=== PATIENT | female | born 1935 | race Caucasian/White ===

== ENCOUNTER 2017-11-06 07:48 | Emergency (ER) | payer MEDICARE, OTHER ==
--- NOTE | 2017-11-06 09:14 | EDM.PDOC ---
ED HPI GENERAL MEDICAL PROBLEM - General Chief Complaint: Head Injury Stated Complaint: FELL AND HURT FACE Time Seen by Provider: 11/06/17 08:40 Source of Information: Reports: Patient, Family, Old Records History Limitations: Reports: Other (dementia) - History of Present Illness INITIAL COMMENTS - FREE TEXT/NARRATIVE: Marian comes into [facility] ED this morning after a fall at [facility] last pm. She has fallen numerous times in the past, last episode 01/18/17. There was no reported LOC. There is considerable facial ecchymoses of the R forehead with R periorbital swelling and suspected hematoma. There are minor ecchymoses of both hands, L buttock, and old ecchymoses of both thighs. She has taken no meds for analgesia. - Related Data Allergies Allergy/AdvReac Type Severity Reaction Status Date / Time codeine Allergy Hallucinati Verified 01/20/16 15:38 ons penicillin G Allergy Itching Verified 01/20/16 15:38 Sulfa (Sulfonamide Allergy Itching Verified 01/20/16 15:38 Antibiotics) Home Meds: Home Meds ALPRAZolam [Alprazolam] 0.25 mg PO BID 01/20/16 [History] Aspirin [Ecotrin] 81 mg PO DAILY 01/20/16 [History] Dextran 70/Hypromellose [Artificial Tears] 1 drop EYEBOTH BID 01/20/16 [History] Donepezil HCl [Aricept] 10 mg PO DAILY 01/20/16 [History] FLUoxetine [PROzac] 20 mg PO DAILY 01/20/16 [History] Furosemide [Lasix] 40 mg PO DAILY 01/20/16 [History] Hydrocodone/Acetaminophen [Hydrocodon-Acetaminophen 5-325] 325 mg PO TID [History] Levothyroxine Sodium [Unithroid] 125 mcg PO DAILY 01/20/16 [History] Multivitamins/Minerals/Lutein [Certavite SR with Lutein] 1 tab PO DAILY [History] Potassium Chloride [Klor-Con] 20 meq PO DAILY 01/20/16 [History] Simvastatin [Zocor] 20 mg PO DAILY 01/20/16 [History] Vit B12/Lmefolate Ca/Vit B6/B2 [Cerefolin] 500 mcg PO DAILY 01/20/16 [History] busPIRone [Buspar] 10 mg PO BID 01/20/16 [History] ALPRAZolam [Xanax] 0.25 mg PO DAILY 11/06/17 [History] Acetaminophen 650 mg PO Q4H PRN MDD 3000 mg 11/06/17 [History] traZODone 100 mg PO DAILY 11/06/17 [History] Past Medical History HEENT History: Reports: Hard of Hearing, Impaired Vision Other HEENT History: HEARING AIDS BILATERAL Gastrointestinal History: Reports: Diverticulosis Genitourinary History: Reports: Urinary Incontinence 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: Musculoskeletal History: Reports: Arthritis Psychiatric History: Reports: Anxiety, Dementia, Depression - Infectious Disease History Infectious Disease History: Reports: MRSA - Past Surgical History HEENT Surgical History: Reports: Eye Surgery Musculoskeletal Surgical History: Reports: Knee Replacement, Shoulder Surgery Social & Family History - Family History Family Medical History: Noncontributory - Tobacco Use Smoking Status *Q: Never Smoker - Recreational Drug Use Recreational Drug Use: No ED ROS GENERAL - Review of Systems Review Of Systems: Unable To Obtain ED EXAM, HEAD INJURY - Physical Exam Exam: See Below Exam Limited By: Other (dementia) General Appearance: Alert, WD/WN, No Apparent Distress Head: Facial Abrasions, Facial Ecchymosis, Facial Swelling, Facial Tenderness ( R forehead and R periorbital tissues) Eyes: Right Eye: Periorbital Changes (ecchymoses, suspected hematoma), Bilateral Eye: EOMI, PERRL Ears: Normal External Exam, Hearing Loss Nose: Normal Inspection Throat/Mouth: Normal Inspection, Normal Lips, Normal Oropharynx, Normal Voice, No Airway Compromise Neck: Non-Tender, Full Range of Motion, Normal Alignment Respiratory: Lungs Clear, Normal Breath Sounds, Chest Non-Tender Cardiovascular: Regular Rate, Rhythm, Extra Beats GI/Abdominal Exam: Normal Bowel Sounds, Soft, Non-Tender, No Organomegaly, No Distention, No Mass (Female) Exam: Deferred Rectal (Female) Exam: Deferred Back Exam: Normal Inspection Extremities: Leg Pain (with movement of knees and hips, and shoulders R>L), Limited Range of Motion, Other (ecchymoses of L buttock, both hands, lateral thighs) 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 Last Recorded V/S: Last Vital Signs Temp 36.5 C 11/06/17 08:10 Pulse 68 11/06/17 08:10 Resp 18 11/06/17 08:10 BP 143/82 H 11/06/17 08:10 Pulse Ox 97 11/06/17 08:10 - Orders/Labs/Meds Orders: Active Orders 24 hr Category Date Time Status Head wo Cont [CT] Stat Exams 11/06/17 09:05 Taken Departure - Departure Time of Disposition: 10:14 Disposition: DC/Tfer to [facility] Condition: Fair Clinical Impression: Recurrent falls Contusion of face Qualifiers: Encounter type: initial encounter Qualified Code(s): S00.83XA - Contusion of other part of head, initial encounter - Discharge Information Referrals: Rigoberto Brooks MD [Primary Care Provider] - Forms: ED Department Discharge - Problem List & Annotations (1) Contusion of face SNOMED Code(s): 000388734 Code(s): S00.83XA - CONTUSION OF OTHER PART OF HEAD, INITIAL ENCOUNTER Status: Acute Current Visit: Yes Annotation/Comment:: Sxs cares, cool packs for comfort, analgesic of choice Qualifiers: Encounter type: initial encounter Qualified Code(s): S00.83XA - Contusion of other part of head, initial encounter (2) Recurrent falls SNOMED Code(s): 287885534 Code(s): R29.6 - REPEATED FALLS Status: Acute Current Visit: Yes Annotation/Comment:: Precautions discussed for Memory Unit at [facility] - Problem List Review Problem List Initiated/Reviewed/Updated: Yes - My Orders Last 24 Hours: My Active Orders 11/06/17 09:05 Head wo Cont [CT] Stat - Assessment/Plan Last 24 Hours: My Active Orders 11/06/17 09:05 Head wo Cont [CT] Stat Plan: Follow up with PCP.
[2017-11-06 09:15] VITALS: BP 143/82
--- NOTE | 2017-11-06 13:22 | CT ---
INDICATION: Unwitnessed fall, recent episode of confusion, right periorbital hematoma, ecchymosis of forehead with no stepoff, no eye injury apparent. CT HEAD WITHOUT CONTRAST: Serial contiguous 2.5 and 5 mm sections were obtained through the brain without contrast 11/06/2017 and compared with 2015. Total exam DLP = 950.31 mGy-cm. A small retention cyst is noted in the right maxillary antrum. The paranasal sinuses and the mastoid air cells were otherwise well-aerated. No cranial fracture site was noted. No orbital fracture site was noted. Moderate degenerative changes are noted at the atlantoodontoid joint with narrowing at the joint space. Fairly marked arterial calcifications are noted in the internal carotid artery distribution, especially to the left middle cerebral artery. Atrophy is noted in the temporal lobes, especially the right. Overlying the right orbital area, there is a subcutaneous hematoma and soft tissue swelling. The ventricles are prominent, compatible with central atrophy, but are only minimally more prominent than on the previous study of 01/20/2016. White matter changes are similar or slightly increased, compatible with progressive moderately severe microvascular disease type changes, although other cause of leukoencephalopathy, such as anoxic encephalopathy, cannot be excluded. No definite acute intracranial abnormality was identified - no bleeding site or hematoma was noted. IMPRESSION: 1. No definite acute intracranial abnormality. 2. 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 3. Central atrophy, possibly minimally progressive. 4. Prominent internal carotid artery calcifications and left middle cerebral artery calcification with lesser degree of middle cerebral artery calcification on the right. 5. Atrophy temporal lobes, especially on the right. 6. Right frontal subcutaneous hematoma - scalp hematoma - with no underlying fracture site. 7. Retention cyst right maxillary antrum. Report was given in person to Dr. Noland at approximately 1010 hours on 2017. MARIANA
== END 2017-11-06 10:30 ==
LOC: FB.ED 07:48
DX: S00.83XA Contusion of other part of head, initial encounter (principal); S30.0XXA Contusion of lower back and pelvis, initial encounter; R29.6 Repeated falls; Z88.5 Allergy status to narcotic agent; Z88.0 Allergy status to penicillin; Z88.2 Allergy status to sulfonamides; Z79.82 Long term (current) use of aspirin; Z79.899 Other long term (current) drug therapy; W19.XXXA Unspecified fall, initial encounter
CPT/HCPCS: 70450; 99284

== ENCOUNTER 2018-03-26 14:49 | Observation (INO) | payer MEDICARE, OTHER, MEDICAID ==
[2018-03-26] MEDS ORDERED: Sodium Chloride 0.9% 10 ML Syringe FLUSH PRN (15:28)
[2018-03-26] MEDS ORDERED: Sodium Chloride 0.9% 1,000 ML IV SCH (15:30)
[2018-03-26 15:55] VITALS: BP 110/56
--- NOTE | 2018-03-26 18:29 | PCM.HP ---
H&P History of Present Illness - General Date of Service: 03/26/18 Admit Problem/Dx: Admission Diagnosis/Problem Admission Diagnosis/Problem Vaginal bleeding Source of Information: Patient, Family History Limitations: Reports: Other (Dementia) - History of Present Illness Initial Comments - Free Text/Narative: This is an 82-year-old female patient that was seen by Dr. Brooks in the clinic for possible vaginal bleeding. She was seen 2 days ago after she started having bleeding around the perineum at the walk-in clinic at [place]. According to the [id number] who is attending with her. They did a vaginal probe and she found PV and no bleeding. Dr. Brooks thought hospital he is coming for the rectum and did a rectal exam is guaiac negative. She does have vaginal itching, frequent urination. She has history of frequent UTIs. She has no dysuria at this time. She is having hysterectomy. She the CT scan 2 days ago that showed cysts on the kidneys but no real issues other than that. - Related Data Allergies/Adverse Reactions: Allergies Allergy/AdvReac Type Severity Reaction Status Date / Time codeine Allergy Hallucinati Verified 03/26/18 16:55 ons penicillin G Allergy Itching Verified 03/26/18 16:55 Sulfa (Sulfonamide Allergy Itching Verified 03/26/18 16:55 Antibiotics) Home Medications: Home Meds Donepezil HCl [Aricept] 10 mg PO BEDTIME 01/20/16 [History] FLUoxetine [PROzac] 20 mg PO DAILY 01/20/16 [History] Furosemide [Lasix] 40 mg PO DAILY 01/20/16 [History] Hydrocodone/Acetaminophen [Hydrocodon-Acetaminophen 5-325] 1 tab PO DAILY [History] Levothyroxine Sodium [Unithroid] 125 mcg PO DAILY 01/20/16 [History] Multivitamins/Minerals/Lutein [Certavite SR with Lutein] 1 tab PO DAILY [History] Potassium Chloride [Klor-Con] 20 meq PO DAILY 01/20/16 [History] busPIRone [Buspar] 10 mg PO BID 01/20/16 [History] ALPRAZolam [Xanax] 0.25 mg PO DAILY PRN 11/06/17 [History] Acetaminophen 650 mg PO Q4H PRN MDD 3000 mg 11/06/17 [History] Diclofenac Sodium [Voltaren] 2 gm TOP QID 11/06/17 [History] traZODone 100 mg PO BEDTIME 11/06/17 [History] Carboxymethylcellulose Sodium [Refresh Tears] 1 drop EYEBOTH BID 03/26/18 [ History] Carboxymethylcellulose Sodium [Refresh Tears] 1 drop EYEBOTH QID PRN 03/26/18 [ History] Cyanocobalamin (Vitamin B-12) [Vitamin B-12] 500 mcg PO DAILY 03/26/18 [History] Loperamide [Imodium AD] 2 mg PO ASDIRECTED PRN 03/26/18 [History] metroNIDAZOLE [Flagyl] 500 mg PO BID 03/26/18 [History] Past Medical History HEENT History: Reports: Hard of Hearing, Impaired Vision Other HEENT History: HEARING AIDS BILATERAL Cardiovascular History: Reports: Heart Failure, High Cholesterol, Other (See Below) Other Cardiovascular History: Edema. Respiratory History: Reports: None Gastrointestinal History: Reports: Diverticulosis, Fecal Incontinence Genitourinary History: Reports: Urinary Incontinence, Other (See Below) Other Genitourinary History: CYST ON LEFT KIDNEY LEGAL INTERN History: Reports: , Other (See Below) Other OB/BYN History: BACTERIAL VAGINOSIS Musculoskeletal History: Reports: Arthritis Other Musculoskeletal History: Right shoulder injury. Neurological History: Reports: Alzheimers Disease Psychiatric History: Reports: Alzheimers Disease, Anxiety, Dementia, Depression Endocrine/Metabolic History: Reports: Other (See Below) Other Endocrine/Metabolic History: Thyroid problems, not specified. 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 - Past Surgical History HEENT Surgical History: Reports: Eye Surgery GI Surgical History: Reports: Appendectomy, Cholecystectomy, Colonoscopy Female Surgical History: Reports: Hysterectomy Neurological Surgical History: Reports: None Musculoskeletal Surgical History: Reports: Knee Replacement, Shoulder Surgery Social & Family History - Family History Family Medical History: Noncontributory - Tobacco Use Smoking Status *Q: Never Smoker Second Hand Smoke Exposure: No - Caffeine Use Caffeine Use: Reports: Coffee, Soda - Recreational Drug Use Recreational Drug Use: No H&P Review of Systems - Review of Systems: Review Of Systems: See Below General: Reports: No Symptoms HEENT: Reports: No Symptoms Pulmonary: Reports: No Symptoms Cardiovascular: Reports: No Symptoms Gastrointestinal: Reports: Other (Negative except for possible bleeding from the rectum.) Genitourinary: Reports: Other (Possible vaginal bleeding) Musculoskeletal: Reports: Shoulder Pain Skin: Reports: No Symptoms Psychiatric: Reports: Other (History dementia and memory loss) Hematologic/Lymphatic: Reports: No Symptoms Immunologic: Reports: No Symptoms Exam - Exam Exam: See Below - Vital Signs Vital Signs: Last Vital Signs Temp 97.7 F 03/26/18 15:28 Pulse 71 03/26/18 15:28 Resp 24 H 03/26/18 15:28 BP 110/56 L 03/26/18 15:28 Pulse Ox 97 03/26/18 15:28 Weight: 149 lb 8 oz - Exam General: Alert, Oriented, Cooperative HEENT: Hearing Intact, Mucosa Moist & Leary, Posterior Pharynx Clear Neck: Supple, Trachea Midline Lungs: Clear to Auscultation, Normal Respiratory Effort Cardiovascular: Regular Rate, Regular Rhythm. No: Irregular Rhythm, Systolic Murmur, Diastolic Murmur GI/Abdominal Exam: Normal Bowel Sounds, Soft, Non-Tender, No Organomegaly, No Distention Rectal (Female) Exam: Other (I used the baby speculum with 2 nurses recruiting assistant. She has a nodule that's beefy that is about 1 cm superior enteroitus. There is a few small clots around the vulva area. There is no clots deep into the vagina. There was vaginal atrophy.) Extremities: Other (No bleeding perirectal.) Neuro Extensive - Mental Status: Alert, Oriented x3, Normal Mood/Affect. No: Normal Cognition Psychiatric: Alert, Normal Affect, Normal Mood - Patient Data Lab Results Last 24 hrs: Laboratory Results - last 24 hr 03/26/18 03/26/18 03/26/18 Range/Units 15:50 15:50 15:50 WBC 4.5 (4.5-12.0) X10-3/uL RBC 3.59 (3.23-5.20) x10(6)uL Hgb 11.3 L (11.5-15.5) g/dL Hct 33.4 (30.0-51.3) % MCV 93.0 (80-96) fL MCH 31.4 (27.7-33.6) pg MCHC 33.8 (32.2-35.4) g/dL RDW 14.2 (11.5-15.5) % Plt Count 148 (125-369) X10(3)uL MPV 10.5 H (7.4-10.4) fL Neut % (Auto) 68.5 (46-82) % Lymph % (Auto) 19.8 (13-37) % [place] % (Auto) 7.2 (4-12) % Eos % (Auto) 4 (1.0-5.0) % Baso % (Auto) 0 (0-2) % Neut # (Auto) 3.1 (1.6-8.3) # Lymph # (Auto) 0.9 (0.6-5.0) # [place] # (Auto) 0.3 (0.0-1.3) # Eos # (Auto) 0.2 (0.0-0.8) # Baso # (Auto) 0.0 (0.0-0.2) # PT 11.1 (8.7-11.1) INR 1.14 H (0.89-1.13) Sodium 143 (135-145) mmol/L Potassium 3.7 (3.5-5.3) mmol/L Chloride 105 (100-110) mmol/L Carbon Dioxide 29 (21-32) mmol/L BUN 18 (7-18) mg/dL Creatinine 1.2 H (0.55-1.02) mg/dL Est Cr Clr Drug Dosing 28.87 mL/min Estimated GFR (MDRD) 43 L (>60) BUN/Creatinine Ratio 15.0 (9-20) Glucose 146 H (80-116) mg/dL Calcium 8.4 L (8.6-10.2) mg/dL Total Bilirubin 0.4 (0.1-1.3) mg/dL AST 22 (5-25) IU/L ALT 21 (12-36) U/L Alkaline Phosphatase 89 (56-112) IU/L Total Protein 6.5 (6.0-8.0) g/dL Albumin 3.2 (3.2-4.6) g/dL Globulin 3.3 g/dL Albumin/Globulin Ratio 1.0 Urine Color (YELLOW) Urine Appearance (CLEAR) Urine pH (5.0-6.5) Ur Specific [place] (1.010-1.025) Urine Protein (NEGATIVE) mg/dL Urine Glucose (UA) (NEGATIVE) mg/dL Urine Ketones (NEGATIVE) mg/dL Urine Occult Blood (NEGATIVE) Urine Nitrite (NEGATIVE) Urine Bilirubin (NEGATIVE) Urine Urobilinogen (NEGATIVE) mg/dL Ur Leukocyte Esterase (NEGATIVE) Urine RBC (0) Urine WBC (0) Ur Squamous Epith Cells (NS,R,O) Urine Bacteria (NS) 03/26/18 Range/Units 17:40 WBC (4.5-12.0) X10-3/uL RBC (3.23-5.20) x10(6)uL Hgb (11.5-15.5) g/dL Hct (30.0-51.3) % MCV (80-96) fL MCH (27.7-33.6) pg MCHC (32.2-35.4) g/dL RDW (11.5-15.5) % Plt Count (125-369) X10(3)uL MPV (7.4-10.4) fL Neut % (Auto) (46-82) % Lymph % (Auto) (13-37) % [place] % (Auto) (4-12) % Eos % (Auto) (1.0-5.0) % Baso % (Auto) (0-2) % Neut # (Auto) (1.6-8.3) # Lymph # (Auto) (0.6-5.0) # [place] # (Auto) (0.0-1.3) # Eos # (Auto) (0.0-0.8) # Baso # (Auto) (0.0-0.2) # PT (8.7-11.1) INR (0.89-1.13) Sodium (135-145) mmol/L Potassium (3.5-5.3) mmol/L Chloride (100-110) mmol/L Carbon Dioxide (21-32) mmol/L BUN (7-18) mg/dL Creatinine (0.55-1.02) mg/dL Est Cr Clr Drug Dosing mL/min Estimated GFR (MDRD) (>60) BUN/Creatinine Ratio (9-20) Glucose (80-116) mg/dL Calcium (8.6-10.2) mg/dL Total Bilirubin (0.1-1.3) mg/dL AST (5-25) IU/L ALT (12-36) U/L Alkaline Phosphatase (56-112) IU/L Total Protein (6.0-8.0) g/dL Albumin (3.2-4.6) g/dL Globulin g/dL Albumin/Globulin Ratio Urine Color Yellow (YELLOW) Urine Appearance Slightly cloudy (CLEAR) Urine pH 5.0 (5.0-6.5) Ur Specific [place] 1.020 (1.010-1.025) Urine Protein Negative (NEGATIVE) mg/dL Urine Glucose (UA) Normal (NEGATIVE) mg/dL Urine Ketones Negative (NEGATIVE) mg/dL Urine Occult Blood Large H (NEGATIVE) Urine Nitrite Negative (NEGATIVE) Urine Bilirubin Negative (NEGATIVE) Urine Urobilinogen Normal (NEGATIVE) mg/dL Ur Leukocyte Esterase Negative (NEGATIVE) Urine RBC 5-10 (0) Urine WBC 0-5 (0) Ur Squamous Epith Cells Few H (NS,R,O) Urine Bacteria Few H (NS) Result Diagrams: 03/26/18 15:50 03/26/18 15:50 - Problem List (1) Mass of vagina SNOMED Code(s): 036520484 ICD Code: N89.9 - NONINFLAMMATORY DISORDER OF VAGINA, UNSPECIFIED Status: Acute Current Visit: Yes (2) Vaginal bleeding SNOMED Code(s): 948580755, 601207501 ICD Code: N93.9 - ABNORMAL UTERINE AND VAGINAL BLEEDING, UNSPECIFIED Status : Acute Current Visit: Yes Problem List Initiated/Reviewed/Updated: Yes Orders Last 24hrs: Active Orders 24 hr Category Date Time Status Patient Status [ADT] Routine ADT 03/26/18 15:28 Active Bedrest Bedside Commode [RC] ASDIRECTED Care 03/26/18 15:28 Active Height and Weight [RC] DAILY Care 03/26/18 15:28 Active Intake and Output [RC] QSHIFT Care 03/26/18 15:29 Active Oxygen Therapy [RC] PRN Care 03/26/18 15:28 Active Up With Assistance [RC] ASDIRECTED Care 03/26/18 15:28 Active Vital Signs [RC] Q4H Care 03/26/18 15:28 Active Regular Diet [DIET] Diet 03/26/18 Breakfast Active Sodium Chloride 0.9% [Normal Saline] 1,000 ml Med 03/26/18 15:30 Active IV ASDIRECTED Sodium Chloride 0.9% [Saline Flush] Med 03/26/18 15:28 Active 10 ml FLUSH ASDIRECTED PRN Peripheral IV Insertion Adult [OM.PC] Routine Oth 03/26/18 15:28 Ordered Resuscitation Status Routine Resus Stat 03/26/18 15:28 Ordered Medication Orders Sodium Chloride (Normal Saline) 1,000 mls @ 125 mls/hr IV ASDIRECTED VANESSA Last Admin: 03/26/18 16:34 Dose: 125 mls/hr Sodium Chloride (Saline Flush) 10 ml FLUSH ASDIRECTED PRN PRN Reason: Keep Vein Open Last Admin: 03/26/18 16:33 Dose: 10 ml Assessment/Plan Comment:: We initially put in for observation because her attending physician felt she could be having a GI bleed he wasn't sure. After doing a thorough exam it appears there is a little vaginal mass but 1 cm that was bleeding but is not currently bleeding. I don't see any evidence of rectal bleeding. We did a UA shows 5-10 red blood cells and that was with a catheter. The urine was clear. So is quite obvious it was not coming from the urethra. After seeing this I will send her back home to [address]. I told her not to touch her manipulate her vaginal area so we don't cause more bleeding. If she has more bleeding which she's not now. They're to call. Otherwise than that I will send a note to her primary that she should see LEGAL INTERN.
--- NOTE | 2018-03-26 18:32 | PCM.DCSUM1 ---
Discharge Summary - Hospital Course Free Text/Narrative:: All the information hospital course was outlined in the reason for hospitalization. Brief History: This is an 82-year-old female patient that was seen by Dr. Brooks in the clinic for possible vaginal bleeding. She was seen 2 days ago after she started having bleeding around the perineum at the walk-in clinic at [place]. According to the [id number] who is attending with her. They did a vaginal probe and she found PV and no bleeding. Dr. Brooks thought hospital he is coming for the rectum and did a rectal exam is guaiac negative. She does have vaginal itching, frequent urination. She has history of frequent UTIs. She has no dysuria at this time. She is having hysterectomy. She the CT scan 2 days ago that showed cysts on the kidneys but no real issues other than that. Diagnosis: Stroke: No - Discharge Data Discharge Date: 03/26/18 Discharge Disposition: Home, Self-Care 01 Condition: Good - Discharge Diagnosis/Problem(s) (1) Mass of vagina SNOMED Code(s): 984266828 ICD Code: N89.9 - NONINFLAMMATORY DISORDER OF VAGINA, UNSPECIFIED Status: Acute Current Visit: Yes (2) Vaginal bleeding SNOMED Code(s): 714523407, 479699910 ICD Code: N93.9 - ABNORMAL UTERINE AND VAGINAL BLEEDING, UNSPECIFIED Status : Acute Current Visit: Yes - Patient Instructions Diet: Regular Diet as Tolerated Activity: As Tolerated Driving: Do Not Drive Showering/Bathing: May Shower Other/Special Instructions: I relate this information to her primary look in decided he wants to set up with [facility] [employer]END[facility] - Discharge Plan Home Medications: Home Meds Donepezil HCl [Aricept] 10 mg PO BEDTIME 01/20/16 [History] FLUoxetine [PROzac] 20 mg PO DAILY 01/20/16 [History] Furosemide [Lasix] 40 mg PO DAILY 01/20/16 [History] Hydrocodone/Acetaminophen [Hydrocodon-Acetaminophen 5-325] 1 tab PO DAILY [History] Levothyroxine Sodium [Unithroid] 125 mcg PO DAILY 01/20/16 [History] Multivitamins/Minerals/Lutein [Certavite SR with Lutein] 1 tab PO DAILY [History] Potassium Chloride [Klor-Con] 20 meq PO DAILY 01/20/16 [History] busPIRone [Buspar] 10 mg PO BID 01/20/16 [History] ALPRAZolam [Xanax] 0.25 mg PO DAILY PRN 11/06/17 [History] Acetaminophen 650 mg PO Q4H PRN MDD 3000 mg 11/06/17 [History] Diclofenac Sodium [Voltaren] 2 gm TOP QID 11/06/17 [History] traZODone 100 mg PO BEDTIME 11/06/17 [History] Carboxymethylcellulose Sodium [Refresh Tears] 1 drop EYEBOTH BID 03/26/18 [ History] Carboxymethylcellulose Sodium [Refresh Tears] 1 drop EYEBOTH QID PRN 03/26/18 [ History] Cyanocobalamin (Vitamin B-12) [Vitamin B-12] 500 mcg PO DAILY 03/26/18 [History] Loperamide [Imodium AD] 2 mg PO ASDIRECTED PRN 03/26/18 [History] metroNIDAZOLE [Flagyl] 500 mg PO BID 03/26/18 [History] Patient Handouts: Fall Prevention in Hospitals, Adult, Venous Thromboembolism Prevention, Dysfunctional Uterine Bleeding - Discharge Summary/Plan Comment DC Time >30 min.: No - Patient Data Vitals - Most Recent: Last Vital Signs Temp 97.7 F 03/26/18 15:28 Pulse 71 03/26/18 15:28 Resp 24 H 03/26/18 15:28 BP 110/56 L 03/26/18 15:28 Pulse Ox 97 03/26/18 15:28 Weight - Most Recent: 149 lb 8 oz I&O - Last 24 hours: Intake & Output 03/26/18 03/26/18 03/26/18 06:59 14:59 22:59 Output Total 250 Balance -250 Lab Results - Last 24 hrs: Laboratory Results - last 24 hr 03/26/18 03/26/18 03/26/18 Range/Units 15:50 15:50 15:50 WBC 4.5 (4.5-12.0) X10-3/uL RBC 3.59 (3.23-5.20) x10(6)uL Hgb 11.3 L (11.5-15.5) g/dL Hct 33.4 (30.0-51.3) % MCV 93.0 (80-96) fL MCH 31.4 (27.7-33.6) pg MCHC 33.8 (32.2-35.4) g/dL RDW 14.2 (11.5-15.5) % Plt Count 148 (125-369) X10(3)uL MPV 10.5 H (7.4-10.4) fL Neut % (Auto) 68.5 (46-82) % Lymph % (Auto) 19.8 (13-37) % [place] % (Auto) 7.2 (4-12) % Eos % (Auto) 4 (1.0-5.0) % Baso % (Auto) 0 (0-2) % Neut # (Auto) 3.1 (1.6-8.3) # Lymph # (Auto) 0.9 (0.6-5.0) # [place] # (Auto) 0.3 (0.0-1.3) # Eos # (Auto) 0.2 (0.0-0.8) # Baso # (Auto) 0.0 (0.0-0.2) # PT 11.1 (8.7-11.1) INR 1.14 H (0.89-1.13) Sodium 143 (135-145) mmol/L Potassium 3.7 (3.5-5.3) mmol/L Chloride 105 (100-110) mmol/L Carbon Dioxide 29 (21-32) mmol/L BUN 18 (7-18) mg/dL Creatinine 1.2 H (0.55-1.02) mg/dL Est Cr Clr Drug Dosing 28.87 mL/min Estimated GFR (MDRD) 43 L (>60) BUN/Creatinine Ratio 15.0 (9-20) Glucose 146 H (80-116) mg/dL Calcium 8.4 L (8.6-10.2) mg/dL Total Bilirubin 0.4 (0.1-1.3) mg/dL AST 22 (5-25) IU/L ALT 21 (12-36) U/L Alkaline Phosphatase 89 (56-112) IU/L Total Protein 6.5 (6.0-8.0) g/dL Albumin 3.2 (3.2-4.6) g/dL Globulin 3.3 g/dL Albumin/Globulin Ratio 1.0 Urine Color (YELLOW) Urine Appearance (CLEAR) Urine pH (5.0-6.5) Ur Specific [place] (1.010-1.025) Urine Protein (NEGATIVE) mg/dL Urine Glucose (UA) (NEGATIVE) mg/dL Urine Ketones (NEGATIVE) mg/dL Urine Occult Blood (NEGATIVE) Urine Nitrite (NEGATIVE) Urine Bilirubin (NEGATIVE) Urine Urobilinogen (NEGATIVE) mg/dL Ur Leukocyte Esterase (NEGATIVE) Urine RBC (0) Urine WBC (0) Ur Squamous Epith Cells (NS,R,O) Urine Bacteria (NS) 03/26/18 Range/Units 17:40 WBC (4.5-12.0) X10-3/uL RBC (3.23-5.20) x10(6)uL Hgb (11.5-15.5) g/dL Hct (30.0-51.3) % MCV (80-96) fL MCH (27.7-33.6) pg MCHC (32.2-35.4) g/dL RDW (11.5-15.5) % Plt Count (125-369) X10(3)uL MPV (7.4-10.4) fL Neut % (Auto) (46-82) % Lymph % (Auto) (13-37) % [place] % (Auto) (4-12) % Eos % (Auto) (1.0-5.0) % Baso % (Auto) (0-2) % Neut # (Auto) (1.6-8.3) # Lymph # (Auto) (0.6-5.0) # [place] # (Auto) (0.0-1.3) # Eos # (Auto) (0.0-0.8) # Baso # (Auto) (0.0-0.2) # PT (8.7-11.1) INR (0.89-1.13) Sodium (135-145) mmol/L Potassium (3.5-5.3) mmol/L Chloride (100-110) mmol/L Carbon Dioxide (21-32) mmol/L BUN (7-18) mg/dL Creatinine (0.55-1.02) mg/dL Est Cr Clr Drug Dosing mL/min Estimated GFR (MDRD) (>60) BUN/Creatinine Ratio (9-20) Glucose (80-116) mg/dL Calcium (8.6-10.2) mg/dL Total Bilirubin (0.1-1.3) mg/dL AST (5-25) IU/L ALT (12-36) U/L Alkaline Phosphatase (56-112) IU/L Total Protein (6.0-8.0) g/dL Albumin (3.2-4.6) g/dL Globulin g/dL Albumin/Globulin Ratio Urine Color Yellow (YELLOW) Urine Appearance Slightly cloudy (CLEAR) Urine pH 5.0 (5.0-6.5) Ur Specific [place] 1.020 (1.010-1.025) Urine Protein Negative (NEGATIVE) mg/dL Urine Glucose (UA) Normal (NEGATIVE) mg/dL Urine Ketones Negative (NEGATIVE) mg/dL Urine Occult Blood Large H (NEGATIVE) Urine Nitrite Negative (NEGATIVE) Urine Bilirubin Negative (NEGATIVE) Urine Urobilinogen Normal (NEGATIVE) mg/dL Ur Leukocyte Esterase Negative (NEGATIVE) Urine RBC 5-10 (0) Urine WBC 0-5 (0) Ur Squamous Epith Cells Few H (NS,R,O) Urine Bacteria Few H (NS) Med Orders - Current: Current Medications Sodium Chloride (Normal Saline) 1,000 mls @ 125 mls/hr IV ASDIRECTED VANESSA Last Admin: 03/26/18 16:34 Dose: 125 mls/hr Sodium Chloride (Saline Flush) 10 ml FLUSH ASDIRECTED PRN PRN Reason: Keep Vein Open Last Admin: 03/26/18 16:33 Dose: 10 ml
== END 2018-03-26 19:00 | disposition home or self-care (01) ==
LOC: FB.MS 15:07
PROVIDERS: ADMIT Family Medicine; ATTEND Family Medicine
DX: N89.9 Noninflammatory disorder of vagina, unspecified (principal); E78.00 Pure hypercholesterolemia, unspecified; I50.9 Heart failure, unspecified; N28.1 Cyst of kidney, acquired; G30.9 Alzheimer's disease, unspecified; F02.80 Dementia in other diseases classified elsewhere, unspecified severity, without behavioral disturbance, psychotic disturbance, mood disturbance, and anxiety; E07.9 Disorder of thyroid, unspecified; F41.9 Anxiety disorder, unspecified; F32.9 Major depressive disorder, single episode, unspecified; Z79.899 Other long term (current) drug therapy; Z88.0 Allergy status to penicillin; Z88.2 Allergy status to sulfonamides; Z88.5 Allergy status to narcotic agent
CPT/HCPCS: 36415; 80053; 81001; 85025; 85610; J7030; J7050

== ENCOUNTER 2019-01-11 15:46 | Inpatient (IN) | payer MEDICARE, MEDICAID ==
[2019-01-11] MEDS ORDERED: Enoxaparin 30 MG/0.3 ML Syringe SUBCUT SCH (17:00)
[2019-01-11] MEDS ORDERED: ALPRAZolam 0.25 MG Tab PO PRN (17:01)
[2019-01-11] MEDS ORDERED: Acetaminophen 325 MG Tab PO PRN (17:01)
[2019-01-11] MEDS ORDERED: Acetaminophen/HYDROcodone 325-5 MG Tab PO PRN (17:01)
[2019-01-11] MEDS ORDERED: Furosemide 40 MG/4 ML VIAL IVPUSH ONE (17:06)
[2019-01-11] MEDS ORDERED: Loperamide 2 MG Cap PO PRN (17:17)
[2019-01-11] MEDS: Sodium Chloride 0.9% 10 ML Syringe FLUSH PRN (17:30)
[2019-01-11] MEDS ORDERED: Sodium Chloride 0.9% 10 ML Syringe FLUSH PRN (17:30)
--- NOTE | 2019-01-11 17:35 | PCM.HP ---
H&P History of Present Illness - General Date of Service: 01/11/19 Admit Problem/Dx: Admission Diagnosis/Problem Admission Diagnosis/Problem Rapid atrial fibrillation Source of Information: Family History Limitations: Reports: Altered Mental Status - History of Present Illness Initial Comments - Free Text/Narative: This 83-year-old female patient with a history of dementia. She says several week history of dyspnea with exertion. She has swollen legs and she's has no history of pleural effusions. She came to clinic and saw Tricia Banks and was found to pleural effusions with rapid A. fib with a rate about 117. Patient asked me several times what it was. She can't really answer questions about palpitations or chest pain. Her [id number] is here and states that she has been getting better. Tricia Darren felt she should be in the hospital sweep placed her in so we the hospital. No fevers, chills, cough per caregiver - Related Data Allergies/Adverse Reactions: Allergies Allergy/AdvReac Type Severity Reaction Status Date / Time codeine Allergy Hallucinati Verified 03/26/18 16:55 ons penicillin G Allergy Itching Verified 03/26/18 16:55 Sulfa (Sulfonamide Allergy Itching Verified 03/26/18 16:55 Antibiotics) Home Medications: Home Meds Donepezil HCl [Aricept] 10 mg PO BEDTIME 01/20/16 [History] FLUoxetine [PROzac] 20 mg PO DAILY 01/20/16 [History] Furosemide [Lasix] 40 mg PO DAILY 01/20/16 [History] Hydrocodone/Acetaminophen [Hydrocodon-Acetaminophen 5-325] 1 tab PO DAILY PRN [History] Levothyroxine Sodium [Unithroid] 125 mcg PO DAILY@0700 01/20/16 [History] Multivitamins/Minerals/Lutein [Certavite SR with Lutein] 1 tab PO DAILY [History] ALPRAZolam [Xanax] 0.25 mg PO DAILY PRN 11/06/17 [History] Acetaminophen 650 mg PO Q4H PRN MDD 3000 mg 11/06/17 [History] Diclofenac Sodium [Voltaren] 2 gm TOP QID 11/06/17 [History] traZODone 100 mg PO BEDTIME 11/06/17 [History] Cyanocobalamin (Vitamin B-12) [Vitamin B-12] 500 mcg PO DAILY 03/26/18 [History] Loperamide [Imodium AD] 2 mg PO ASDIRECTED PRN 03/26/18 [History] Glycerin/Propylene Glycol [Artificial Tears Drops] 1 drop EYEBOTH BID 01/11/19 [ History] Glycerin/Propylene Glycol [Artificial Tears Drops] 1 drop EYEBOTH QID PRN [History] Potassium Chloride 20 meq PO DAILY 01/11/19 [History] busPIRone [Buspar] 10 mg PO BID 01/11/19 [History] Past Medical History HEENT History: Reports: Hard of Hearing, Impaired Vision Other HEENT History: HEARING AIDS BILATERAL Cardiovascular History: Reports: Heart Failure, High Cholesterol, Other (See Below) Other Cardiovascular History: Edema. 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 Neurological History: Reports: Alzheimers Disease Psychiatric History: Reports: Alzheimers Disease, Anxiety, Dementia, Depression Endocrine/Metabolic History: Reports: Other (See Below) Other Endocrine/Metabolic History: Thyroid problems, not specified. 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 - Past Surgical History HEENT Surgical History: Reports: Eye Surgery GI Surgical History: Reports: Appendectomy, Cholecystectomy, Colonoscopy Female Surgical History: Reports: Hysterectomy Neurological Surgical History: Reports: None Musculoskeletal Surgical History: Reports: Knee Replacement, Shoulder Surgery Social & Family History - Family History Family Medical History: Noncontributory - Caffeine Use Caffeine Use: Reports: Coffee, Soda H&P Review of Systems - Review of Systems: Review Of Systems: See Below Free Text/Narrative: patient has dementia. Any review of systems is able to attain was by a family member. General: Reports: No Symptoms HEENT: Reports: No Symptoms Pulmonary: Reports: Shortness of Breath. Denies: Cough, Sputum, Hemoptysis Cardiovascular: Reports: Dyspnea on Exertion, Edema. Denies: Chest Pain, Palpitations, Orthopnea Gastrointestinal: Reports: No Symptoms Genitourinary: Reports: No Symptoms Musculoskeletal: Reports: No Symptoms Skin: Reports: No Symptoms Psychiatric: Reports: Other (Dementia) Neurological: Reports: No Symptoms Hematologic/Lymphatic: Reports: No Symptoms Immunologic: Reports: No Symptoms Exam - Exam Exam: See Below - Exam General: Alert, Cooperative. No: Oriented HEENT: Hearing Intact (Decreased with hearing aids), Mucosa Moist & [place], Posterior Pharynx Clear, TMs Clear Neck: Supple, Trachea Midline Lungs: Clear to Auscultation, Normal Respiratory Effort. No: Crackles, Rales, Rhonchi Cardiovascular: Irregular Rhythm, Tachycardia GI/Abdominal Exam: Normal Bowel Sounds, Soft, Non-Tender, No Distention Extremities: Pedal Edema Skin: Warm, Dry, Intact Neurological: Normal Speech, Normal Tone Neuro Extensive - Mental Status: Alert, Normal Mood/Affect. No: Normal Cognition, Memory Intact Psychiatric: Alert, Normal Affect, Normal Mood - Problem List (1) Rapid atrial fibrillation SNOMED Code(s): 215660665 ICD Code: I48.91 - UNSPECIFIED ATRIAL FIBRILLATION Status: Acute Current Visit: Yes (2) Dementia SNOMED Code(s): 10700839 ICD Code: F03.90 - UNSPECIFIED DEMENTIA WITHOUT BEHAVIORAL DISTURBANCE Status: Acute Current Visit: Yes (3) Pleural effusion SNOMED Code(s): 43796750 ICD Code: J90 - PLEURAL EFFUSION, NOT ELSEWHERE CLASSIFIED Status: Acute Current Visit: Yes (4) Pitting edema SNOMED Code(s): 678658240 ICD Code: R60.9 - EDEMA, UNSPECIFIED Status: Acute Current Visit: Yes (5) Palliative care status SNOMED Code(s): 191061872 ICD Code: Z51.5 - ENCOUNTER FOR PALLIATIVE CARE Status: Acute Current Visit: Yes Problem List Initiated/Reviewed/Updated: Yes Orders Last 24hrs: Active Orders 24 hr Category Date Time Status Patient Status [ADT] Routine ADT 01/11/19 16:57 Active Height and Weight [RC] DAILY Care 01/11/19 16:57 Active Intake and Output [RC] QSHIFT Care 01/11/19 16:58 Active Oxygen Therapy [RC] PRN Care 01/11/19 16:57 Active Telemetry Monitoring [Cardiac Monitoring] [RC] .As Care 01/11/19 17:04 Active Directed Up With Assistance [RC] ASDIRECTED Care 01/11/19 16:57 Active VTE/DVT Education [RC] Per Unit Routine Care 01/11/19 16:57 Active Vital Signs [RC] Q4H Care 01/11/19 16:57 Active OT Evaluation and Treatment [CONS] Routine Cons 01/11/19 16:57 Active PT Evaluation and Treatment [CONS] Routine Cons 01/11/19 16:57 Active 2 Gram Sodium Diet [DIET] Diet 01/11/19 Dinner Active CBC WITH AUTO DIFF [HEME] AM Lab 01/12/19 05:11 Ordered COMPREHENSIVE METABOLIC PN,CMP [CHEM] AM Lab 01/12/19 05:11 Ordered PRO B-TYPE NATRIUR PEPT,BNPPRO [CHEM] Routine Lab 01/11/19 17:15 Received TROPONIN I [CHEM] Routine Lab 01/11/19 17:15 Received ALPRAZolam [Xanax] Med 01/11/19 17:01 Active 0.25 mg PO DAILY PRN Acetaminophen [Tylenol] Med 01/11/19 17:01 Active 650 mg PO Q4H PRN Acetaminophen/HYDROcodone [[place] 325-5 MG] Med 01/11/19 17:01 Active 1 tab PO DAILY PRN Diclofenac Sodium [Voltaren 1% Gel] Med 01/11/19 21:00 Active 0 gm TOP QID Donepezil [Aricept] Med 01/11/19 21:00 Active 10 mg PO BEDTIME Enoxaparin [Lovenox] Med 01/11/19 17:00 Pending 30 mg SUBCUT Q24H FLUoxetine [PROzac] Med 01/12/19 09:00 Active 20 mg PO DAILY Glycerin/Propylene Glycol [Artificial Tears Drops] Med 01/11/19 21:00 Pending 1 drop EYEBOTH BID Glycerin/Propylene Glycol [Artificial Tears Drops] Med 01/11/19 17:01 Pending 1 drop EYEBOTH QID PRN Levothyroxine Med 01/12/19 07:00 Active 125 mcg PO DAILY@0700 Loperamide [Imodium] Med 01/11/19 17:17 Active 2 - 4 mg PO ASDIRECTED PRN Metoprolol Tartrate [Lopressor] Med 01/11/19 18:00 Active 12.5 mg PO Q12H Multivitamins,Therapeutic [Thera] Med 01/12/19 09:00 Active 1 each PO DAILY Potassium Chloride [Klor-Con M20] Med 01/12/19 09:00 Active 20 meq PO DAILY Sodium Chloride 0.9% [Saline Flush] Med 01/11/19 16:57 Active 10 ml FLUSH ASDIRECTED PRN traZODone Med 01/11/19 21:00 Active 100 mg PO BEDTIME Peripheral IV Insertion Adult [OM.PC] Routine Oth 01/11/19 16:57 Ordered Sequential Compression Device [OM.PC] Per Unit Routine Oth 01/11/19 16:58 Ordered Resuscitation Status Routine Resus Stat 01/11/19 16:57 Ordered Medication Orders Acetaminophen (Tylenol) 650 mg PO Q4H PRN PRN Reason: Pain/Fever Hydrocodone Bitart/Acetaminophen ([place] 325-5 Mg) 1 tab PO DAILY PRN PRN Reason: SEVERE PAIN Alprazolam (Xanax) 0.25 mg PO DAILY PRN PRN Reason: Anxiety Diclofenac Sodium (Voltaren 1% Gel) 0 gm TOP QID [facility] Donepezil HCl (Aricept) 10 mg PO BEDTIME [facility] Enoxaparin Sodium (Lovenox) 30 mg SUBCUT Q24H [facility] Fluoxetine HCl (Prozac) 20 mg PO DAILY [facility] Levothyroxine Sodium (Levothyroxine) 125 mcg PO DAILY@0700 [facility] Loperamide HCl (Imodium) 2 - 4 mg PO ASDIRECTED PRN PRN Reason: DIARRHEA Metoprolol Tartrate (Lopressor) 12.5 mg PO Q12H [facility] Multivitamins (Thera) 1 each PO DAILY [facility] Non-Formulary Medication (Glycerin/Propylene Glycol [Artificial Tears Drops]) 1 drop EYEBOTH BID [facility] Non-Formulary Medication (Glycerin/Propylene Glycol [Artificial Tears Drops]) 1 drop EYEBOTH QID PRN PRN Reason: Dry Eyes Potassium Chloride (Klor-Con M20) 20 meq PO DAILY [facility] Sodium Chloride (Saline Flush) 10 ml FLUSH ASDIRECTED PRN PRN Reason: Keep Vein Open Trazodone HCl (Trazodone) 100 mg PO BEDTIME [facility] Assessment/Plan Comment:: 1. Admit on telemetry 2. For VTE prophylaxis we'll use Lovenox and SCD 3. Regular diet with low-sodium 4. Up with assist 5. PT/OT 6. Daily weights and I's and O's 7. Check BNP and troponin 8. Chest x-ray and EKG were reviewed at the clinic 9. Lasix IV tonight 1. 10. O2 to keep sats greater than 90%.
[2019-01-11] MEDS ORDERED: Acetaminophen 500 MG Tab PO STA (17:48)
[2019-01-11] MEDS: Metoprolol Tartrate 25 MG Tab PO SCH (18:48)
[2019-01-11] MEDS: Donepezil 10 MG Tab PO SCH (20:36)
[2019-01-11] MEDS: traZODone 100 MG Tab PO SCH (20:37)
[2019-01-11] MEDS ORDERED: Enoxaparin 30 MG/0.3 ML Syringe SUBCUT ONE (21:00)
[2019-01-11] MEDS: Diclofenac Sodium 1% Gel 100 GM Tube TOP SCH (21:37)
[2019-01-12] MEDS: Levothyroxine 125 MCG Tab PO SCH (06:08)
[2019-01-12] MEDS: Metoprolol Tartrate 25 MG Tab PO SCH ×2 (06:09→17:17)
[2019-01-12] MEDS: Potassium Chloride 20 MEQ Tab.ER PO SCH (08:22)
[2019-01-12] MEDS: Multivitamins,Therapeutic Tab PO SCH (08:22)
[2019-01-12] MEDS: FLUoxetine 20 MG Cap PO SCH (08:22)
[2019-01-12] MEDS: Diclofenac Sodium 1% Gel 100 GM Tube TOP SCH ×4 (08:24→21:04)
--- NOTE | 2019-01-12 08:44 | PCM.PN ---
- General Info Date of Service: 01/12/19 Admission Dx/Problem (Free Text): Patient has no concerns. She has dementia. Her ivqrsyzd-lf-czj is here and says she was panting order when she was sleeping. She's not been out of bed. She denies chest pain, palpitations. - Patient Data Vitals - Most Recent: Last Vital Signs Temp 97.7 F 01/12/19 04:30 Pulse 104 H 01/12/19 06:09 Resp 18 01/12/19 04:30 BP 113/75 01/12/19 06:09 Pulse Ox 99 01/12/19 04:30 Weight - Most Recent: 145 lb 3.2 oz Lab Results Last 24 Hours: Laboratory Results - last 24 hr 01/11/19 01/11/19 01/12/19 Range/Units 17:15 17:15 07:15 WBC 2.8 L (4.5-12.0) X10-3/uL RBC 3.76 (3.23-5.20) x10(6)uL Hgb 11.9 (11.5-15.5) g/dL Hct 35.1 (30.0-51.3) % MCV 93.3 (80-96) fL MCH 31.6 (27.7-33.6) pg MCHC 33.8 (32.2-35.4) g/dL RDW 16.8 H (11.5-15.5) % Plt Count 45 L (125-369) X10(3)uL MPV 10.5 H (7.4-10.4) fL Neut % (Auto) 67.7 (46-82) % Lymph % (Auto) 20.1 (13-37) % Hanson % (Auto) 9.1 (4-12) % Eos % (Auto) 3 (1.0-5.0) % Baso % (Auto) 1 (0-2) % Neut # (Auto) 1.8 (1.6-8.3) # Lymph # (Auto) 0.6 (0.6-5.0) # Hanson # (Auto) 0.3 (0.0-1.3) # Eos # (Auto) 0.1 (0.0-0.8) # Baso # (Auto) 0.0 (0.0-0.2) # Sodium (135-145) mmol/L Potassium (3.5-5.3) mmol/L Chloride (100-110) mmol/L Carbon Dioxide (21-32) mmol/L BUN (7-18) mg/dL Creatinine (0.55-1.02) mg/dL Est Cr Clr Drug Dosing mL/min Estimated GFR (MDRD) (>60) BUN/Creatinine Ratio (9-20) Glucose (80-116) mg/dL Calcium (8.6-10.2) mg/dL Total Bilirubin (0.1-1.3) mg/dL AST (5-25) IU/L ALT (12-36) U/L Alkaline Phosphatase (56-112) IU/L Troponin I < 0.017 L (<0.017-0.056) ng/mL NT-Pro-B Natriuret Pep 5843 H* (<=450) pg/mL Total Protein (6.0-8.0) g/dL Albumin (3.2-4.6) g/dL Globulin g/dL Albumin/Globulin Ratio 01/12/19 01/12/19 Range/Units 07:15 07:15 WBC (4.5-12.0) X10-3/uL RBC (3.23-5.20) x10(6)uL Hgb (11.5-15.5) g/dL Hct (30.0-51.3) % MCV (80-96) fL MCH (27.7-33.6) pg MCHC (32.2-35.4) g/dL RDW (11.5-15.5) % Plt Count (125-369) X10(3)uL MPV (7.4-10.4) fL Neut % (Auto) (46-82) % Lymph % (Auto) (13-37) % Hanson % (Auto) (4-12) % Eos % (Auto) (1.0-5.0) % Baso % (Auto) (0-2) % Neut # (Auto) (1.6-8.3) # Lymph # (Auto) (0.6-5.0) # Hanson # (Auto) (0.0-1.3) # Eos # (Auto) (0.0-0.8) # Baso # (Auto) (0.0-0.2) # Sodium 144 (135-145) mmol/L Potassium 3.9 (3.5-5.3) mmol/L Chloride 107 (100-110) mmol/L Carbon Dioxide 26 (21-32) mmol/L BUN 26 H (7-18) mg/dL Creatinine 1.3 H (0.55-1.02) mg/dL Est Cr Clr Drug Dosing 29.04 mL/min Estimated GFR (MDRD) 39 L (>60) BUN/Creatinine Ratio 20.0 (9-20) Glucose 80 (80-116) mg/dL Calcium 9.0 (8.6-10.2) mg/dL Total Bilirubin 1.5 H (0.1-1.3) mg/dL AST 32 H D (5-25) IU/L ALT 29 D (12-36) U/L Alkaline Phosphatase 107 (56-112) IU/L Troponin I 0.019 (<0.017-0.056) ng/mL NT-Pro-B Natriuret Pep (<=450) pg/mL Total Protein 6.5 (6.0-8.0) g/dL Albumin 3.2 (3.2-4.6) g/dL Globulin 3.3 g/dL Albumin/Globulin Ratio 1.0 Med Orders - Current: Current Medications Hydrocodone Bitart/Acetaminophen ([place] 325-5 Mg) 1 tab PO DAILY PRN PRN Reason: SEVERE PAIN Alprazolam (Xanax) 0.25 mg PO DAILY PRN PRN Reason: Anxiety Artificial Tears (Liquitears 1.4% Ophth Soln) 0 ml EYEBOTH BID [place] Artificial Tears (Liquitears 1.4% Ophth Soln) 0 ml EYEBOTH QID PRN PRN Reason: DRY EYES Diclofenac Sodium (Voltaren 1% Gel) 0 gm TOP QID [facility] Last Admin: 01/12/19 08:24 Dose: 2 gm Donepezil HCl (Aricept) 10 mg PO BEDTIME [facility] Last Admin: 01/11/19 20:36 Dose: 10 mg Enoxaparin Sodium (Lovenox) 30 mg SUBCUT Q24H [facility] Fluoxetine HCl (Prozac) 20 mg PO DAILY [facility] Last Admin: 01/12/19 08:22 Dose: 20 mg Furosemide (Lasix) 40 mg PO BIDDIURETIC [facility] Levothyroxine Sodium (Levothyroxine) 125 mcg PO DAILY@0700 [facility] Last Admin: 01/12/19 06:08 Dose: 125 mcg Lisinopril (Prinivil) 5 mg PO DAILY [facility] Loperamide HCl (Imodium) 2 - 4 mg PO ASDIRECTED PRN PRN Reason: DIARRHEA Metoprolol Tartrate (Lopressor) 12.5 mg PO Q12H [facility] Last Admin: 01/12/19 06:09 Dose: 12.5 mg Multivitamins (Thera) 1 each PO DAILY [facility] Last Admin: 01/12/19 08:22 Dose: 1 each Potassium Chloride (Klor-Con M20) 20 meq PO DAILY [facility] Last Admin: 01/12/19 08:22 Dose: 20 meq Sodium Chloride (Saline Flush) 10 ml FLUSH ASDIRECTED PRN PRN Reason: Keep Vein Open Last Admin: 01/11/19 17:30 Dose: 10 ml Sodium Chloride (Saline Flush) 10 ml FLUSH ASDIRECTED PRN PRN Reason: flush med Trazodone HCl (Trazodone) 100 mg PO BEDTIME [facility] Last Admin: 01/11/19 20:37 Dose: 100 mg Discontinued Medications Acetaminophen (Tylenol) 650 mg PO Q4H PRN PRN Reason: Pain/Fever Acetaminophen (Tylenol Extra Strength) 500 mg PO TID STA Stop: 01/11/19 17:49 Last Admin: 01/11/19 19:01 Dose: 500 mg Enoxaparin Sodium (Lovenox) 30 mg SUBCUT ONETIME ONE Stop: 01/11/19 21:01 Last Admin: 01/11/19 20:36 Dose: 30 mg Furosemide (Lasix) 60 mg IVPUSH NOW ONE Stop: 01/11/19 17:07 Last Admin: 01/11/19 17:49 Dose: 60 mg - Exam General: Alert, Cooperative. No: Oriented Lungs: Clear to Auscultation, Normal Respiratory Effort. No: Crackles, Rales, Rhonchi Cardiovascular: Regular Rate, No Murmurs, Irregular Rhythm Extremities: No Pedal Edema - Problem List & Annotations (1) Rapid atrial fibrillation SNOMED Code(s): 900769225 Code(s): I48.91 - UNSPECIFIED ATRIAL FIBRILLATION Status: Acute Current Visit: Yes (2) Dementia SNOMED Code(s): 27449010 Code(s): F03.90 - UNSPECIFIED DEMENTIA WITHOUT BEHAVIORAL DISTURBANCE Status: Acute Current Visit: Yes (3) Pleural effusion SNOMED Code(s): 55439220 Code(s): J90 - PLEURAL EFFUSION, NOT ELSEWHERE CLASSIFIED Status: Acute Current Visit: Yes (4) Pitting edema SNOMED Code(s): 124168009 Code(s): R60.9 - EDEMA, UNSPECIFIED Status: Acute Current Visit: Yes (5) Palliative care status SNOMED Code(s): 216069927 Code(s): Z51.5 - ENCOUNTER FOR PALLIATIVE CARE Status: Acute Current Visit: Yes - Problem List Review Problem List Initiated/Reviewed/Updated: Yes - My Orders Last 24 Hours: My Active Orders 01/11/19 16:57 Patient Status [ADT] Routine Height and Weight [RC] DAILY Oxygen Therapy [RC] PRN Up With Assistance [RC] ASDIRECTED VTE/DVT Education [RC] Per Unit Routine Vital Signs [RC] Q4H OT Evaluation and Treatment [CONS] Routine PT Evaluation and Treatment [CONS] Routine Sodium Chloride 0.9% [Saline Flush] 10 ml FLUSH ASDIRECTED PRN Peripheral IV Insertion Adult [OM.PC] Routine Resuscitation Status Routine 01/11/19 16:58 Intake and Output [RC] QSHIFT Sequential Compression Device [OM.PC] Per Unit Routine 01/11/19 17:00 Enoxaparin [Lovenox] 30 mg SUBCUT Q24H 01/11/19 17:01 ALPRAZolam [Xanax] 0.25 mg PO DAILY PRN Acetaminophen/HYDROcodone [[place] 325-5 MG] 1 tab PO DAILY PRN 01/11/19 17:04 Telemetry Monitoring [Cardiac Monitoring] [RC] .As Directed 01/11/19 17:17 Loperamide [Imodium] 2 - 4 mg PO ASDIRECTED PRN 01/11/19 17:30 Sodium Chloride 0.9% [Saline Flush] 10 ml FLUSH ASDIRECTED PRN 01/11/19 18:00 Metoprolol Tartrate [Lopressor] 12.5 mg PO Q12H 01/11/19 18:21 EKG Documentation Completion [RC] ASDIRECTED 01/11/19 21:00 Diclofenac Sodium [Voltaren 1% Gel] 0 gm TOP QID Donepezil [Aricept] 10 mg PO BEDTIME traZODone 100 mg PO BEDTIME 01/11/19 Dinner 2 Gram Sodium Diet [DIET] 01/12/19 05:11 EKG 12 Lead [EK] AM 01/12/19 07:00 Levothyroxine 125 mcg PO DAILY@0700 01/12/19 08:39 Echo Comp wo Cont [US] Routine 01/12/19 08:41 EKG Documentation Completion [RC] AM 01/12/19 09:00 FLUoxetine [PROzac] 20 mg PO DAILY Lisinopril [Prinivil] 5 mg PO DAILY Multivitamins,Therapeutic [Thera] 1 each PO DAILY Polyvinyl Alcohol [LiquiTears 1.4% Ophth Soln] 0 ml EYEBOTH BID Polyvinyl Alcohol [LiquiTears 1.4% Ophth Soln] 0 ml EYEBOTH QID PRN Potassium Chloride [Klor-Con M20] 20 meq PO DAILY 01/12/19 14:00 Furosemide [Lasix] 40 mg PO BIDDIURETIC - Plan Plan:: 1. Ambulation with PT/OT. 2. Low-dose BAY inhibitor and slowly titrate up depending on blood pressure and heart rate. 3. Continue metoprolol twice a day 4. Echocardiogram 5. Discussed anticoagulation with the family. Because of her current health we will forego anticoagulation.
[2019-01-12] MEDS ORDERED: Polyvinyl Alcohol 1.4% Ophth Soln 15 ML Bottle EYEBOTH PRN (09:00)
[2019-01-12] MEDS: Furosemide 40 MG Tab PO SCH ×2 (09:33→15:01)
[2019-01-12] MEDS: Polyvinyl Alcohol 1.4% Ophth Soln 15 ML Bottle EYEBOTH SCH ×2 (09:33→21:07)
[2019-01-12] MEDS: Lisinopril 5 MG Tab PO SCH (09:34)
[2019-01-12] MEDS: Sodium Chloride 0.9% 10 ML Syringe FLUSH PRN (11:08)
[2019-01-12] MEDS: Donepezil 10 MG Tab PO SCH (21:03)
[2019-01-12] MEDS: traZODone 100 MG Tab PO SCH (21:04)
[2019-01-13] MEDS: Metoprolol Tartrate 25 MG Tab PO SCH (07:21)
[2019-01-13 07:22] VITALS: BP 116/72
[2019-01-13] MEDS: Levothyroxine 125 MCG Tab PO SCH (07:22)
--- NOTE | 2019-01-13 09:04 | PCM.PN ---
- General Info Date of Service: 01/13/19 Admission Dx/Problem (Free Text): Patient is without complaints. Her ucwaepjy-ly-gci states that she takes some funny fast breast incision is short of breath and then it goes away. She also states when the grandchildren here she didn't do that. Nurses report that she does get short of breath when she is walking. Her rate has been controlled and oxygen is normal. Echocardiogram shows pleural effusion with mitral and aortic regurg. Ejection fraction is 55%. Leg swelling is now gone. - Patient Data Vitals - Most Recent: Last Vital Signs Temp 97.7 F 01/13/19 04:00 Pulse 89 01/13/19 07:21 Resp 20 01/13/19 04:00 BP 116/72 01/13/19 07:21 Pulse Ox 95 01/13/19 04:00 Weight - Most Recent: 146 lb 4.8 oz I&O - Last 24 Hours: Intake & Output 01/12/19 01/13/19 01/13/19 22:59 06:59 14:59 Intake Total 350 Balance 350 Med Orders - Current: Current Medications Hydrocodone Bitart/Acetaminophen ([place] 325-5 Mg) 1 tab PO DAILY PRN PRN Reason: SEVERE PAIN Alprazolam (Xanax) 0.25 mg PO DAILY PRN PRN Reason: Anxiety Artificial Tears (Liquitears 1.4% Ophth Soln) 0 ml EYEBOTH BID [facility] Last Admin: 01/12/19 21:07 Dose: 1 drop Artificial Tears (Liquitears 1.4% Ophth Soln) 0 ml EYEBOTH QID PRN PRN Reason: DRY EYES Diclofenac Sodium (Voltaren 1% Gel) 0 gm TOP QID [facility] Last Admin: 01/12/19 21:04 Dose: 1 gm Donepezil HCl (Aricept) 10 mg PO BEDTIME [facility] Last Admin: 01/12/19 21:03 Dose: 10 mg Fluoxetine HCl (Prozac) 20 mg PO DAILY [facility] Last Admin: 01/12/19 08:22 Dose: 20 mg Furosemide (Lasix) 40 mg PO BIDDIURETIC [facility] Last Admin: 01/12/19 15:01 Dose: 40 mg Levothyroxine Sodium (Levothyroxine) 125 mcg PO DAILY@0700 [facility] Last Admin: 01/13/19 07:22 Dose: 125 mcg Lisinopril (Prinivil) 5 mg PO DAILY [facility] Last Admin: 01/12/19 09:34 Dose: 5 mg Loperamide HCl (Imodium) 2 - 4 mg PO ASDIRECTED PRN PRN Reason: DIARRHEA Metoprolol Tartrate (Lopressor) 12.5 mg PO Q12H [facility] Last Admin: 01/13/19 07:21 Dose: 12.5 mg Multivitamins (Thera) 1 each PO DAILY [facility] Last Admin: 01/12/19 08:22 Dose: 1 each Potassium Chloride (Klor-Con M20) 20 meq PO DAILY [facility] Last Admin: 01/12/19 08:22 Dose: 20 meq Sodium Chloride (Saline Flush) 10 ml FLUSH ASDIRECTED PRN PRN Reason: Keep Vein Open Last Admin: 01/12/19 11:08 Dose: 10 ml Sodium Chloride (Saline Flush) 10 ml FLUSH ASDIRECTED PRN PRN Reason: flush med Trazodone HCl (Trazodone) 100 mg PO BEDTIME [facility] Last Admin: 01/12/19 21:04 Dose: 100 mg Discontinued Medications Acetaminophen (Tylenol) 650 mg PO Q4H PRN PRN Reason: Pain/Fever Acetaminophen (Tylenol Extra Strength) 500 mg PO TID STA Stop: 01/11/19 17:49 Last Admin: 01/11/19 19:01 Dose: 500 mg Enoxaparin Sodium (Lovenox) 30 mg SUBCUT Q24H [facility] Enoxaparin Sodium (Lovenox) 30 mg SUBCUT ONETIME ONE Stop: 01/11/19 21:01 Last Admin: 01/11/19 20:36 Dose: 30 mg Furosemide (Lasix) 60 mg IVPUSH NOW ONE Stop: 01/11/19 17:07 Last Admin: 01/11/19 17:49 Dose: 60 mg - Exam General: Alert, Cooperative. No: Oriented Lungs: Clear to Auscultation, Normal Respiratory Effort Cardiovascular: Regular Rate, Irregular Rhythm. No: Murmurs Extremities: No Pedal Edema - Problem List & Annotations (1) Rapid atrial fibrillation SNOMED Code(s): 374106123 Code(s): I48.91 - UNSPECIFIED ATRIAL FIBRILLATION Status: Acute Current Visit: Yes (2) Dementia SNOMED Code(s): 94604806 Code(s): F03.90 - UNSPECIFIED DEMENTIA WITHOUT BEHAVIORAL DISTURBANCE Status: Acute Current Visit: Yes (3) Pleural effusion SNOMED Code(s): 53264866 Code(s): J90 - PLEURAL EFFUSION, NOT ELSEWHERE CLASSIFIED Status: Acute Current Visit: Yes (4) Pitting edema SNOMED Code(s): 280007575 Code(s): R60.9 - EDEMA, UNSPECIFIED Status: Acute Current Visit: Yes (5) Palliative care status SNOMED Code(s): 202111931 Code(s): Z51.5 - ENCOUNTER FOR PALLIATIVE CARE Status: Acute Current Visit: Yes - Problem List Review Problem List Initiated/Reviewed/Updated: Yes - My Orders Last 24 Hours: My Active Orders 01/12/19 08:39 Echo Comp wo Cont [US] Routine 01/12/19 08:41 EKG Documentation Completion [RC] AM 01/12/19 09:00 FLUoxetine [PROzac] 20 mg PO DAILY Furosemide [Lasix] 40 mg PO BIDDIURETIC Lisinopril [Prinivil] 5 mg PO DAILY Multivitamins,Therapeutic [Thera] 1 each PO DAILY Polyvinyl Alcohol [LiquiTears 1.4% Ophth Soln] 0 ml EYEBOTH BID Polyvinyl Alcohol [LiquiTears 1.4% Ophth Soln] 0 ml EYEBOTH QID PRN Potassium Chloride [Klor-Con M20] 20 meq PO DAILY - Plan Plan:: 1. I talked to the xlvisyfq-kl-ioo that there is limited things that we can do. And she understands this. We'll discharge her to [facility] today with metoprolol and increase Lasix dose. Do PT/OT and home health. Anticoagulation was deferred by the family
--- NOTE | 2019-01-13 09:11 | PCM.DCSUM1 ---
Discharge Summary - Hospital Course Free Text/Narrative:: Hospital course the patient was placed on 40 g of twice a day Lasix and metoprolol twice a day. Patient some leg swelling that went away. Her rate that was about 117-121 down into the normal speech blood pressure is controlled. Patient felt better although she still is shortness of breath when she walked. She doesn't pleural effusions and an echocardiogram that showed aortic regurg and mitral regurg. Pleural effusions of liver too small to do a thoracentesis this time. Did discuss anticoagulation with the family and they deferred after he went over risks and benefits. Goals discussed. Was only some much we can do with her health condition at this time with her severe dementia. We'll discharge her to [facility] with PT/OT and home health. Brief History: This 83-year-old female patient with a history of dementia. She says several week history of dyspnea with exertion. She has swollen legs and she 's has no history of pleural effusions. She came to clinic and saw Tricia Banks and was found to pleural effusions with rapid A. fib with a rate about 117. Patient asked me several times what it was. She can't really answer questions about palpitations or chest pain. Her cioiwvrv-gn-zat is here and states that she has been getting better. Tricia Banks felt she should be in the hospital sweep placed her in so we the hospital. No fevers, chills, cough per caregiver Diagnosis: Stroke: No - Discharge Data Discharge Date: 01/13/19 Discharge Disposition: DC/Tfer to [facility] 61 Condition: Good - Discharge Diagnosis/Problem(s) (1) Rapid atrial fibrillation SNOMED Code(s): 091630214 ICD Code: I48.91 - UNSPECIFIED ATRIAL FIBRILLATION Status: Acute Current Visit: Yes (2) Dementia SNOMED Code(s): 55992850 ICD Code: F03.90 - UNSPECIFIED DEMENTIA WITHOUT BEHAVIORAL DISTURBANCE Status: Acute Current Visit: Yes (3) Pleural effusion SNOMED Code(s): 12556604 ICD Code: J90 - PLEURAL EFFUSION, NOT ELSEWHERE CLASSIFIED Status: Acute Current Visit: Yes (4) Pitting edema SNOMED Code(s): 098055350 ICD Code: R60.9 - EDEMA, UNSPECIFIED Status: Acute Current Visit: Yes (5) Palliative care status SNOMED Code(s): 595319826 ICD Code: Z51.5 - ENCOUNTER FOR PALLIATIVE CARE Status: Acute Current Visit: Yes - Patient Summary/Data Consults: Consultations 01/11/19 16:57 OT Evaluation and Treatment [CONS] Routine Please Evaluate and Treat. OT Reason for Consult: ADL's This query below is only for informational purposes and is not editable. PT Evaluation and Treatment [CONS] Routine Please Evaluate and Treat. PT Reason for Consult: Ambulation This query below is only for informational purposes and is not editable. - Patient Instructions Diet: Low Sodium Activity, Other: With assist Driving: Do Not Drive Showering/Bathing: May Shower Other/Special Instructions: 1. See Dr. Brooks in 1 week. 2. PT/OT/home health for daily weights, medication monitoring, strengthening, ADLs - Discharge Plan Prescriptions/Med Rec: Furosemide [Lasix] 40 mg PO BIDDIURETIC #60 tablet Lisinopril [Prinivil] 5 mg PO DAILY #30 tablet Metoprolol Tartrate [Lopressor] 12.5 mg PO Q12H #60 tablet Home Medications: Home Meds Donepezil HCl [Aricept] 10 mg PO BEDTIME 01/20/16 [History] FLUoxetine [PROzac] 20 mg PO DAILY 01/20/16 [History] Hydrocodone/Acetaminophen [Hydrocodon-Acetaminophen 5-325] 1 tab PO DAILY PRN [History] Levothyroxine Sodium [Unithroid] 125 mcg PO DAILY@0700 01/20/16 [History] Multivitamins/Minerals/Lutein [Certavite SR with Lutein] 1 tab PO DAILY [History] ALPRAZolam [Xanax] 0.25 mg PO DAILY PRN 11/06/17 [History] Acetaminophen 650 mg PO Q4H PRN MDD 3000 mg 11/06/17 [History] Diclofenac Sodium [Voltaren] 2 gm TOP QID 11/06/17 [History] traZODone 100 mg PO BEDTIME 11/06/17 [History] Cyanocobalamin (Vitamin B-12) [Vitamin B-12] 500 mcg PO DAILY 03/26/18 [History] Loperamide [Imodium AD] 2 mg PO ASDIRECTED PRN 03/26/18 [History] Glycerin/Propylene Glycol [Artificial Tears Drops] 1 drop EYEBOTH BID 01/11/19 [ History] Glycerin/Propylene Glycol [Artificial Tears Drops] 1 drop EYEBOTH QID PRN [History] Potassium Chloride 20 meq PO DAILY 01/11/19 [History] busPIRone [Buspar] 10 mg PO BID 01/11/19 [History] Furosemide [Lasix] 40 mg PO BIDDIURETIC #60 tablet 01/13/19 [Rx] Lisinopril [Prinivil] 5 mg PO DAILY #30 tablet 01/13/19 [Rx] Metoprolol Tartrate [Lopressor] 12.5 mg PO Q12H #60 tablet 01/13/19 [Rx] - Discharge Summary/Plan Comment DC Time >30 min.: No - Patient Data Vitals - Most Recent: Last Vital Signs Temp 97.7 F 01/13/19 04:00 Pulse 89 01/13/19 07:21 Resp 20 01/13/19 04:00 BP 116/72 01/13/19 07:21 Pulse Ox 95 01/13/19 04:00 Weight - Most Recent: 146 lb 4.8 oz I&O - Last 24 hours: Intake & Output 01/12/19 01/13/19 01/13/19 22:59 06:59 14:59 Intake Total 350 Balance 350 Med Orders - Current: Current Medications Hydrocodone Bitart/Acetaminophen ([place] 325-5 Mg) 1 tab PO DAILY PRN PRN Reason: SEVERE PAIN Alprazolam (Xanax) 0.25 mg PO DAILY PRN PRN Reason: Anxiety Artificial Tears (Liquitears 1.4% Ophth Soln) 0 ml EYEBOTH BID [facility] Last Admin: 01/12/19 21:07 Dose: 1 drop Artificial Tears (Liquitears 1.4% Ophth Soln) 0 ml EYEBOTH QID PRN PRN Reason: DRY EYES Diclofenac Sodium (Voltaren 1% Gel) 0 gm TOP QID [facility] Last Admin: 01/12/19 21:04 Dose: 1 gm Donepezil HCl (Aricept) 10 mg PO BEDTIME [facility] Last Admin: 01/12/19 21:03 Dose: 10 mg Fluoxetine HCl (Prozac) 20 mg PO DAILY [facility] Last Admin: 01/12/19 08:22 Dose: 20 mg Furosemide (Lasix) 40 mg PO BIDDIURETIC [facility] Last Admin: 01/12/19 15:01 Dose: 40 mg Levothyroxine Sodium (Levothyroxine) 125 mcg PO DAILY@0700 [facility] Last Admin: 01/13/19 07:22 Dose: 125 mcg Lisinopril (Prinivil) 5 mg PO DAILY [facility] Last Admin: 01/12/19 09:34 Dose: 5 mg Loperamide HCl (Imodium) 2 - 4 mg PO ASDIRECTED PRN PRN Reason: DIARRHEA Metoprolol Tartrate (Lopressor) 12.5 mg PO Q12H [facility] Last Admin: 01/13/19 07:21 Dose: 12.5 mg Multivitamins (Thera) 1 each PO DAILY [facility] Last Admin: 01/12/19 08:22 Dose: 1 each Potassium Chloride (Klor-Con M20) 20 meq PO DAILY [facility] Last Admin: 01/12/19 08:22 Dose: 20 meq Sodium Chloride (Saline Flush) 10 ml FLUSH ASDIRECTED PRN PRN Reason: Keep Vein Open Last Admin: 01/12/19 11:08 Dose: 10 ml Sodium Chloride (Saline Flush) 10 ml FLUSH ASDIRECTED PRN PRN Reason: flush med Trazodone HCl (Trazodone) 100 mg PO BEDTIME [facility] Last Admin: 01/12/19 21:04 Dose: 100 mg Discontinued Medications Acetaminophen (Tylenol) 650 mg PO Q4H PRN PRN Reason: Pain/Fever Acetaminophen (Tylenol Extra Strength) 500 mg PO TID STA Stop: 01/11/19 17:49 Last Admin: 01/11/19 19:01 Dose: 500 mg Enoxaparin Sodium (Lovenox) 30 mg SUBCUT Q24H [facility] Enoxaparin Sodium (Lovenox) 30 mg SUBCUT ONETIME ONE Stop: 01/11/19 21:01 Last Admin: 01/11/19 20:36 Dose: 30 mg Furosemide (Lasix) 60 mg IVPUSH NOW ONE Stop: 01/11/19 17:07 Last Admin: 01/11/19 17:49 Dose: 60 mg
[2019-01-13] MEDS: Potassium Chloride 20 MEQ Tab.ER PO SCH (09:12)
[2019-01-13] MEDS: Furosemide 40 MG Tab PO SCH (09:12)
[2019-01-13] MEDS: Polyvinyl Alcohol 1.4% Ophth Soln 15 ML Bottle EYEBOTH SCH (09:13)
[2019-01-13] MEDS: Lisinopril 5 MG Tab PO SCH (09:13)
[2019-01-13] MEDS: FLUoxetine 20 MG Cap PO SCH (09:13)
[2019-01-13] MEDS: Multivitamins,Therapeutic Tab PO SCH (09:14)
[2019-01-13] MEDS: Diclofenac Sodium 1% Gel 100 GM Tube TOP SCH (09:14)
[2019-01-13 11:04] VITALS: PULSE 88
== END 2019-01-13 10:50 | DRG 308 ==
LOC: FB.MS 16:06
PROVIDERS: ADMIT Family Medicine; ATTEND Family Medicine
DX: I48.91 Unspecified atrial fibrillation (principal); I50.23 Acute on chronic systolic (congestive) heart failure; E78.00 Pure hypercholesterolemia, unspecified; M19.90 Unspecified osteoarthritis, unspecified site; G30.9 Alzheimer's disease, unspecified; F02.80 Dementia in other diseases classified elsewhere, unspecified severity, without behavioral disturbance, psychotic disturbance, mood disturbance, and anxiety; F41.9 Anxiety disorder, unspecified; F32.9 Major depressive disorder, single episode, unspecified; E07.9 Disorder of thyroid, unspecified; H91.90 Unspecified hearing loss, unspecified ear; R32 Unspecified urinary incontinence; R15.9 Full incontinence of feces; H54.7 Unspecified visual loss; Z86.14 Personal history of Methicillin resistant Staphylococcus aureus infection; Z90.49 Acquired absence of other specified parts of digestive tract; Z90.710 Acquired absence of both cervix and uterus; Z96.659 Presence of unspecified artificial knee joint; Z51.5 Encounter for palliative care; Z88.6 Allergy status to analgesic agent; Z88.0 Allergy status to penicillin; Z88.2 Allergy status to sulfonamides; Z79.899 Other long term (current) drug therapy; Z79.890 Hormone replacement therapy
CPT/HCPCS: 36415; 80053; 83880; 84484; 85025; 93005; 93306; A9270-GY; J1650; J1940

== ENCOUNTER 2019-04-11 13:32 | Inpatient (IN) | payer MEDICARE, MEDICAID ==
[2019-04-11] MEDS ORDERED: Sodium Chloride 0.9% 10 ML Syringe FLUSH PRN (14:22)
[2019-04-11] MEDS ORDERED: Sodium Chloride 0.9% 500 ML IV ONE (14:25)
--- NOTE | 2019-04-11 16:25 | EDM.PDOC ---
ED HPI GENERAL MEDICAL PROBLEM - General Stated Complaint: weakness Time Seen by Provider: 04/11/19 14:10 Source of Information: Reports: Other (Family member) History Limitations: Reports: Altered Mental Status - History of Present Illness INITIAL COMMENTS - FREE TEXT/NARRATIVE: Patient is an 83 yo WF who was brought in to the ED because of weakness and altered LOC. She is feeling weak for the past couple of days and barely could stand up on her own. She was also noted to have watery stools which according to the relative was an ongoing problem. She also fell 2 weeks ago but has not been evaluated for that. Today she is confused more than usual although she doesn't have neuro s/s. - Related Data Allergies Allergy/AdvReac Type Severity Reaction Status Date / Time codeine Allergy Hallucinati Verified 03/26/18 16:55 ons penicillin G Allergy Itching Verified 03/26/18 16:55 Sulfa (Sulfonamide Allergy Itching Verified 03/26/18 16:55 Antibiotics) Home Meds: Home Meds Donepezil HCl [Aricept] 10 mg PO BEDTIME 01/20/16 [History] FLUoxetine [PROzac] 20 mg PO DAILY 01/20/16 [History] Hydrocodone/Acetaminophen [Hydrocodon-Acetaminophen 5-325] 1 tab PO DAILY PRN [History] Levothyroxine Sodium [Unithroid] 125 mcg PO DAILY@0700 01/20/16 [History] Multivitamins/Minerals/Lutein [Certavite SR with Lutein] 1 tab PO DAILY [History] ALPRAZolam [Xanax] 0.25 mg PO DAILY PRN 11/06/17 [History] Acetaminophen 650 mg PO Q4H PRN MDD 3000 mg 11/06/17 [History] Diclofenac Sodium [Voltaren] 2 gm TOP QID 11/06/17 [History] traZODone 100 mg PO BEDTIME 11/06/17 [History] Cyanocobalamin (Vitamin B-12) [Vitamin B-12] 500 mcg PO DAILY 03/26/18 [History] Loperamide [Imodium AD] 2 mg PO ASDIRECTED PRN 03/26/18 [History] Glycerin/Propylene Glycol [Artificial Tears Drops] 1 drop EYEBOTH BID 01/11/19 [ History] Glycerin/Propylene Glycol [Artificial Tears Drops] 1 drop EYEBOTH QID PRN [History] Potassium Chloride 20 meq PO DAILY 01/11/19 [History] busPIRone [Buspar] 10 mg PO BID 01/11/19 [History] Furosemide [Lasix] 40 mg PO BIDDIURETIC #60 tablet 01/13/19 [Rx] Lisinopril [Prinivil] 5 mg PO DAILY #30 tablet 01/13/19 [Rx] Metoprolol Tartrate [Lopressor] 12.5 mg PO Q12H #60 tablet 01/13/19 [Rx] Past Medical History HEENT History: Reports: Hard of Hearing, Impaired Vision Other HEENT History: HEARING AIDS BILATERAL Cardiovascular History: Reports: Heart Failure, High Cholesterol, Other (See Below) Other Cardiovascular History: Edema. Respiratory History: Reports: None Other Respiratory History: PLEURAL EFFUSION BRANDON. CURRENT ADMISSION. 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 Neurological History: Reports: Alzheimers Disease Psychiatric History: Reports: Alzheimers Disease, Anxiety, Dementia, Depression Endocrine/Metabolic History: Reports: Other (See Below) Other Endocrine/Metabolic History: Thyroid problems, not specified. 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 - Past Surgical History HEENT Surgical History: Reports: Eye Surgery GI Surgical History: Reports: Appendectomy, Cholecystectomy, Colonoscopy Female Surgical History: Reports: Hysterectomy Neurological Surgical History: Reports: None Musculoskeletal Surgical History: Reports: Knee Replacement, Shoulder Surgery Social & Family History - Family History Family Medical History: Noncontributory - Caffeine Use Caffeine Use: Reports: Coffee, Soda ED ROS GENERAL - Review of Systems Review Of Systems: See Below Constitutional: Reports: No Symptoms HEENT: Reports: No Symptoms Respiratory: Reports: No Symptoms Cardiovascular: Reports: No Symptoms Endocrine: Reports: No Symptoms GI/Abdominal: Reports: Diarrhea Musculoskeletal: Reports: No Symptoms, Neck Pain Skin: Reports: No Symptoms Neurological: Reports: Confusion ED EXAM, GENERAL - Physical Exam Exam: See Below Exam Limited By: No Limitations General Appearance: Lethargic Eye Exam: Bilateral Eye: PERRL Ears: Normal External Exam, Other Nose: Normal Inspection, Normal Mucosa Throat/Mouth: Normal Inspection, Other (dry lips) Head: Other (brusiding on face) Respiratory/Chest: No Respiratory Distress, Lungs Clear, Normal Breath Sounds, No Accessory Muscle Use, Chest Non-Tender GI/Abdominal: Soft, No Organomegaly, Other (hyperactive bowel sound) (Female) Exam: Normal External Exam Back Exam: Normal Inspection, Full Range of Motion Extremities: Normal Inspection, Normal Range of Motion, No Pedal Edema Neurological: Confused, Disoriented Course - Vital Signs Text/Narrative:: labs and radiology result discussed to patient and family Head Ct-neg CXR-neg BNP>12K trop-neg UA-see result while in the ED she has 2 watery stools IVF 500 ml saline bolus case discussed with Dr Brooks - Orders/Labs/Meds Orders: Active Orders 24 hr Category Date Time Status EKG Documentation Completion [RC] ASDIRECTED Care 04/11/19 14:24 Active Chest 1V Frontal [CR] Stat Exams 04/11/19 14:22 Taken Head wo Cont [CT] Stat Exams 04/11/19 14:22 Taken Sodium Chloride 0.9% [Saline Flush] Med 04/11/19 14:22 Active 10 ml FLUSH ASDIRECTED PRN Saline Lock Insert [OM.PC] Routine Oth 04/11/19 14:22 Ordered EKG 12 Lead [EK] Routine Ther 04/11/19 14:22 Ordered Medication Orders Sodium Chloride (Saline Flush) 10 ml FLUSH ASDIRECTED PRN PRN Reason: Keep Vein Open Labs: Laboratory Tests 04/11/19 04/11/19 04/11/19 Range/Units 14:22 15:00 15:00 WBC 7.4 (4.5-12.0) X10-3/uL RBC 3.64 (3.23-5.20) x10(6)uL Hgb 11.7 (11.5-15.5) g/dL Hct 35.0 (30.0-51.3) % MCV 96.2 H (80-96) fL MCH 32.1 (27.7-33.6) pg MCHC 33.4 (32.2-35.4) g/dL RDW 18.7 H (11.5-15.5) % Plt Count 42 L (125-369) X10(3)uL MPV 11.1 H (7.4-10.4) fL Add Manual Diff Yes Neutrophils % (Manual) 84 H (46-82) % Lymphocytes % (Manual) 11 L (13-37) % Monocytes % (Manual) 5 (4-12) % Nucleated RBCs 1 H (0-0) /100WBC Anisocytosis Many H Sodium 139 (135-145) mmol/L Potassium 5.4 H D (3.5-5.3) mmol/L Chloride 105 (100-110) mmol/L Carbon Dioxide 21 (21-32) mmol/L BUN 75 H D (7-18) mg/dL Creatinine 5.0 H* (0.55-1.02) mg/dL Est Cr Clr Drug Dosing TNP Estimated GFR (MDRD) 8 L (>60) BUN/Creatinine Ratio 15.0 (9-20) Glucose 243 H D (80-116) mg/dL Calcium 8.7 (8.6-10.2) mg/dL Total Bilirubin 0.9 (0.1-1.3) mg/dL AST 25 D (5-25) IU/L ALT 34 D (12-36) U/L Alkaline Phosphatase 108 (56-112) IU/L Troponin I (<0.017-0.056) ng/mL NT-Pro-B Natriuret Pep (<=450) pg/mL Total Protein 6.8 (6.0-8.0) g/dL Albumin 3.2 (3.2-4.6) g/dL Globulin 3.6 g/dL Albumin/Globulin Ratio 0.9 Urine Color Yellow (YELLOW) Urine Appearance Clear (CLEAR) Urine pH 5.0 (5.0-6.5) Ur Specific [place] 1.015 (1.010-1.025) Urine Protein 30 H (NEGATIVE) mg/dL Urine Glucose (UA) Normal (NORMAL) mg/dL Urine Ketones 15 H (NEGATIVE) mg/dL Urine Occult Blood Negative (NEGATIVE) Urine Nitrite Negative (NEGATIVE) Urine Bilirubin Negative (NEGATIVE) Urine Urobilinogen Normal (NEGATIVE) mg/dL Ur Leukocyte Esterase Moderate H (NEGATIVE) Urine RBC 0-5 (0-5) Urine WBC 5-10 H (0-5) Ur Squamous Epith Cells Few H (NS,R,O) Urine Bacteria Many H (NS) Hyaline Casts Few H (NS) 04/11/19 Range/Units 15:00 WBC (4.5-12.0) X10-3/uL RBC (3.23-5.20) x10(6)uL Hgb (11.5-15.5) g/dL Hct (30.0-51.3) % MCV (80-96) fL MCH (27.7-33.6) pg MCHC (32.2-35.4) g/dL RDW (11.5-15.5) % Plt Count (125-369) X10(3)uL MPV (7.4-10.4) fL Add Manual Diff Neutrophils % (Manual) (46-82) % Lymphocytes % (Manual) (13-37) % Monocytes % (Manual) (4-12) % Nucleated RBCs (0-0) /100WBC Anisocytosis Sodium (135-145) mmol/L Potassium (3.5-5.3) mmol/L Chloride (100-110) mmol/L Carbon Dioxide (21-32) mmol/L BUN (7-18) mg/dL Creatinine (0.55-1.02) mg/dL Est Cr Clr Drug Dosing Estimated GFR (MDRD) (>60) BUN/Creatinine Ratio (9-20) Glucose (80-116) mg/dL Calcium (8.6-10.2) mg/dL Total Bilirubin (0.1-1.3) mg/dL AST (5-25) IU/L ALT (12-36) U/L Alkaline Phosphatase (56-112) IU/L Troponin I < 0.017 L (<0.017-0.056) ng/mL NT-Pro-B Natriuret Pep 53873 H* (<=450) pg/mL Total Protein (6.0-8.0) g/dL Albumin (3.2-4.6) g/dL Globulin g/dL Albumin/Globulin Ratio Urine Color (YELLOW) Urine Appearance (CLEAR) Urine pH (5.0-6.5) Ur Specific [place] (1.010-1.025) Urine Protein (NEGATIVE) mg/dL Urine Glucose (UA) (NORMAL) mg/dL Urine Ketones (NEGATIVE) mg/dL Urine Occult Blood (NEGATIVE) Urine Nitrite (NEGATIVE) Urine Bilirubin (NEGATIVE) Urine Urobilinogen (NEGATIVE) mg/dL Ur Leukocyte Esterase (NEGATIVE) Urine RBC (0-5) Urine WBC (0-5) Ur Squamous Epith Cells (NS,R,O) Urine Bacteria (NS) Hyaline Casts (NS) Meds: Medications Generic Name Dose Route Start Last Admin Trade Name Freq PRN Reason Stop Dose Admin Sodium Chloride 10 ml 04/11/19 14:22 Saline Flush FLUSH ASDIRECTED PRN Keep Vein Open Discontinued Medications Generic Name Dose Route Start Last Admin Trade Name Freq PRN Reason Stop Dose Admin Sodium Chloride 500 mls @ 500 mls/hr 04/11/19 14:25 04/11/19 15:21 Normal Saline IV 04/11/19 15:24 500 mls/hr .BOLUS ONE Administration Departure - Departure Time of Disposition: 16:30 Disposition: Admitted As Inpatient 64 Condition: Good Clinical Impression: UTI (urinary tract infection), Dehydration - Discharge Information *PRESCRIPTION DRUG MONITORING PROGRAM REVIEWED*: No Referrals: Rigoberto Brooks MD [Primary Care Provider] - - My Orders Last 24 Hours: My Active Orders 04/11/19 14:22 Chest 1V Frontal [CR] Stat Head wo Cont [CT] Stat Sodium Chloride 0.9% [Saline Flush] 10 ml FLUSH ASDIRECTED PRN Saline Lock Insert [OM.PC] Routine EKG 12 Lead [EK] Routine 04/11/19 14:24 EKG Documentation Completion [RC] ASDIRECTED - Assessment/Plan Last 24 Hours: My Active Orders 04/11/19 14:22 Chest 1V Frontal [CR] Stat Head wo Cont [CT] Stat Sodium Chloride 0.9% [Saline Flush] 10 ml FLUSH ASDIRECTED PRN Saline Lock Insert [OM.PC] Routine EKG 12 Lead [EK] Routine 04/11/19 14:24 EKG Documentation Completion [RC] ASDIRECTED
[2019-04-11] MEDS ORDERED: Ciprofloxacin in D5W 400 MG in Premix Bag 1 BAG IV ONE ×2 (17:06)
[2019-04-11] MEDS: Sodium Chloride 0.9% 1,000 ML IV SCH ×3 (17:27→19:28)
[2019-04-11] MEDS ORDERED: ALPRAZolam 0.25 MG Tab PO PRN (17:37)
[2019-04-11] MEDS ORDERED: Acetaminophen 325 MG Tab PO PRN (17:37)
[2019-04-11] MEDS ORDERED: Acetaminophen/HYDROcodone 325-5 MG Tab PO PRN (17:37)
--- NOTE | 2019-04-11 17:51 | PCM.HP.2 ---
H&P History of Present Illness - General Date of Service: 04/11/19 Admit Problem/Dx: Admission Diagnosis/Problem Admission Diagnosis/Problem Dehydration Source of Information: Patient, Family, Old Records History Limitations: Reports: Altered Mental Status - History of Present Illness Initial Comments - Free Text/Narative: Marian is a 83-year-old female from [facility]. She was brought in because of generalized weakness of fairly sudden onset. She also was reported to have loose stools. She has a history of dementia and is not a reliable historian. In the emergency Department she was found to have a creatinine of 5.0 from a baseline of 1.2. There has been no chest pain, shortness of breath, cough, fever or chills neither has there been any nausea or vomiting. She's had recurrent falls in the last few weeks. She has a h/o hypertension and osteoarthritis, stable. - Related Data Allergies/Adverse Reactions: Allergies Allergy/AdvReac Type Severity Reaction Status Date / Time codeine Allergy Hallucinati Verified 04/11/19 18:44 ons penicillin G Allergy Itching Verified 04/11/19 18:44 Sulfa (Sulfonamide Allergy Itching Verified 04/11/19 18:44 Antibiotics) Home Medications: Home Meds Donepezil HCl [Aricept] 10 mg PO BEDTIME 01/20/16 [History] FLUoxetine [PROzac] 20 mg PO DAILY 01/20/16 [History] Hydrocodone/Acetaminophen [Hydrocodon-Acetaminophen 5-325] 1 tab PO DAILY PRN [History] Levothyroxine Sodium [Unithroid] 125 mcg PO DAILY@0700 01/20/16 [History] Multivitamins/Minerals/Lutein [Certavite SR with Lutein] 1 tab PO DAILY [History] ALPRAZolam [Xanax] 0.25 mg PO DAILY PRN 11/06/17 [History] Acetaminophen 650 mg PO Q4H PRN MDD 3000 mg 11/06/17 [History] Diclofenac Sodium [Voltaren] 2 gm TOP QID 11/06/17 [History] traZODone 100 mg PO BEDTIME 11/06/17 [History] Cyanocobalamin (Vitamin B-12) [Vitamin B-12] 500 mcg PO DAILY 03/26/18 [History] Loperamide [Imodium AD] 2 mg PO ASDIRECTED PRN 03/26/18 [History] Glycerin/Propylene Glycol [Artificial Tears Drops] 1 drop EYEBOTH BID 01/11/19 [ History] Glycerin/Propylene Glycol [Artificial Tears Drops] 1 drop EYEBOTH QID PRN [History] Potassium Chloride 20 meq PO DAILY 01/11/19 [History] busPIRone [Buspar] 10 mg PO BID 01/11/19 [History] Furosemide [Lasix] 40 mg PO BIDDIURETIC #60 tablet 01/13/19 [Rx] Lisinopril [Prinivil] 5 mg PO DAILY #30 tablet 01/13/19 [Rx] Metoprolol Tartrate [Lopressor] 12.5 mg PO Q12H #60 tablet 01/13/19 [Rx] Aspirin [Halfprin] 81 mg PO DAILY 04/11/19 [History] Past Medical History HEENT History: Reports: Hard of Hearing, Impaired Vision Other HEENT History: HEARING AIDS BILATERAL Cardiovascular History: Reports: Heart Failure, High Cholesterol, Other (See Below) Other Cardiovascular History: Edema. Respiratory History: Reports: None Other Respiratory History: PLEURAL EFFUSION BRANDON. CURRENT ADMISSION. 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 Neurological History: Reports: Alzheimers Disease Psychiatric History: Reports: Alzheimers Disease, Anxiety, Dementia, Depression Endocrine/Metabolic History: Reports: Other (See Below) Other Endocrine/Metabolic History: Thyroid problems, not specified. 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 - Past Surgical History HEENT Surgical History: Reports: Eye Surgery GI Surgical History: Reports: Appendectomy, Cholecystectomy, Colonoscopy Female Surgical History: Reports: Hysterectomy Neurological Surgical History: Reports: None Musculoskeletal Surgical History: Reports: Knee Replacement, Shoulder Surgery Social & Family History - Family History Family Medical History: Noncontributory - Caffeine Use Caffeine Use: Reports: Coffee, Soda H&P Review of Systems - Review of Systems: Review Of Systems: ROS reveals no pertinent complaints other than HPI. Exam - Exam Exam: See Below - Vital Signs Vital Signs: Last Vital Signs Temp 95.6 F 04/11/19 17:23 Pulse 64 04/11/19 17:23 Resp 18 04/11/19 17:23 BP 133/60 04/11/19 17:23 Pulse Ox 100 04/11/19 17:23 - Exam Quality Assessment: No: Supplemental Oxygen General: Alert, Lethargic. No: Oriented HEENT: PERRLA, Conjunctiva Clear Neck: Supple, Trachea Midline, +2 Carotid Pulse wo Bruit Lungs: Clear to Auscultation, Crackles Cardiovascular: Regular Rate GI/Abdominal Exam: Normal Bowel Sounds, Soft, Non-Tender. No: Mass (Female) Exam: Deferred Rectal (Female) Exam: Deferred Back Exam: Normal Inspection Extremities: Normal Inspection Skin: Dry Neurological: Cranial Nerves Intact Neuro Extensive - Mental Status: Alert Neuro Extensive - Motor, Sensory, Reflexes: CN II-XII Intact - Patient Data Lab Results Last 24 hrs: Laboratory Results - last 24 hr 04/11/19 04/11/19 04/11/19 Range/Units 14:22 15:00 15:00 WBC 7.4 (4.5-12.0) X10-3/uL RBC 3.64 (3.23-5.20) x10(6)uL Hgb 11.7 (11.5-15.5) g/dL Hct 35.0 (30.0-51.3) % MCV 96.2 H (80-96) fL MCH 32.1 (27.7-33.6) pg MCHC 33.4 (32.2-35.4) g/dL RDW 18.7 H (11.5-15.5) % Plt Count 42 L (125-369) X10(3)uL MPV 11.1 H (7.4-10.4) fL Add Manual Diff Yes Neutrophils % (Manual) 84 H (46-82) % Lymphocytes % (Manual) 11 L (13-37) % Monocytes % (Manual) 5 (4-12) % Nucleated RBCs 1 H (0-0) /100WBC Anisocytosis Many H Sodium 139 (135-145) mmol/L Potassium 5.4 H D (3.5-5.3) mmol/L Chloride 105 (100-110) mmol/L Carbon Dioxide 21 (21-32) mmol/L BUN 75 H D (7-18) mg/dL Creatinine 5.0 H* (0.55-1.02) mg/dL Est Cr Clr Drug Dosing TNP Estimated GFR (MDRD) 8 L (>60) BUN/Creatinine Ratio 15.0 (9-20) Glucose 243 H D (80-116) mg/dL Calcium 8.7 (8.6-10.2) mg/dL Total Bilirubin 0.9 (0.1-1.3) mg/dL AST 25 D (5-25) IU/L ALT 34 D (12-36) U/L Alkaline Phosphatase 108 (56-112) IU/L Troponin I (<0.017-0.056) ng/mL NT-Pro-B Natriuret Pep (<=450) pg/mL Total Protein 6.8 (6.0-8.0) g/dL Albumin 3.2 (3.2-4.6) g/dL Globulin 3.6 g/dL Albumin/Globulin Ratio 0.9 Urine Color Yellow (YELLOW) Urine Appearance Clear (CLEAR) Urine pH 5.0 (5.0-6.5) Ur Specific [place] 1.015 (1.010-1.025) Urine Protein 30 H (NEGATIVE) mg/dL Urine Glucose (UA) Normal (NORMAL) mg/dL Urine Ketones 15 H (NEGATIVE) mg/dL Urine Occult Blood Negative (NEGATIVE) Urine Nitrite Negative (NEGATIVE) Urine Bilirubin Negative (NEGATIVE) Urine Urobilinogen Normal (NEGATIVE) mg/dL Ur Leukocyte Esterase Moderate H (NEGATIVE) Urine RBC 0-5 (0-5) Urine WBC 5-10 H (0-5) Ur Squamous Epith Cells Few H (NS,R,O) Urine Bacteria Many H (NS) Hyaline Casts Few H (NS) 04/11/19 Range/Units 15:00 WBC (4.5-12.0) X10-3/uL RBC (3.23-5.20) x10(6)uL Hgb (11.5-15.5) g/dL Hct (30.0-51.3) % MCV (80-96) fL MCH (27.7-33.6) pg MCHC (32.2-35.4) g/dL RDW (11.5-15.5) % Plt Count (125-369) X10(3)uL MPV (7.4-10.4) fL Add Manual Diff Neutrophils % (Manual) (46-82) % Lymphocytes % (Manual) (13-37) % Monocytes % (Manual) (4-12) % Nucleated RBCs (0-0) /100WBC Anisocytosis Sodium (135-145) mmol/L Potassium (3.5-5.3) mmol/L Chloride (100-110) mmol/L Carbon Dioxide (21-32) mmol/L BUN (7-18) mg/dL Creatinine (0.55-1.02) mg/dL Est Cr Clr Drug Dosing Estimated GFR (MDRD) (>60) BUN/Creatinine Ratio (9-20) Glucose (80-116) mg/dL Calcium (8.6-10.2) mg/dL Total Bilirubin (0.1-1.3) mg/dL AST (5-25) IU/L ALT (12-36) U/L Alkaline Phosphatase (56-112) IU/L Troponin I < 0.017 L (<0.017-0.056) ng/mL NT-Pro-B Natriuret Pep 26971 H* (<=450) pg/mL Total Protein (6.0-8.0) g/dL Albumin (3.2-4.6) g/dL Globulin g/dL Albumin/Globulin Ratio Urine Color (YELLOW) Urine Appearance (CLEAR) Urine pH (5.0-6.5) Ur Specific [place] (1.010-1.025) Urine Protein (NEGATIVE) mg/dL Urine Glucose (UA) (NORMAL) mg/dL Urine Ketones (NEGATIVE) mg/dL Urine Occult Blood (NEGATIVE) Urine Nitrite (NEGATIVE) Urine Bilirubin (NEGATIVE) Urine Urobilinogen (NEGATIVE) mg/dL Ur Leukocyte Esterase (NEGATIVE) Urine RBC (0-5) Urine WBC (0-5) Ur Squamous Epith Cells (NS,R,O) Urine Bacteria (NS) Hyaline Casts (NS) Result Diagrams: 04/12/19 06:20 04/12/19 06:20 - Problem List (1) ABBY (acute kidney injury) SNOMED Code(s): 42243282, 45389870 ICD Code: N17.9 - ACUTE KIDNEY FAILURE, UNSPECIFIED Status: Acute Current Visit: Yes (2) H/O CHF SNOMED Code(s): 689556446 ICD Code: Z86.79 - PERSONAL HISTORY OF OTHER DISEASES OF THE CIRCULATORY SYSTEM Status: Chronic Current Visit: Yes (3) HTN (hypertension) SNOMED Code(s): 27604147 ICD Code: I10 - ESSENTIAL (PRIMARY) HYPERTENSION Status: Acute Current Visit: Yes Qualifiers: Hypertension type: essential hypertension Qualified Code(s): I10 - Essential (primary) hypertension (4) UTI (urinary tract infection) SNOMED Code(s): 91132795 ICD Code: N39.0 - URINARY TRACT INFECTION, SITE NOT SPECIFIED Status: Acute Current Visit: Yes Qualifiers: Urinary tract infection type: acute cystitis (5) Dementia SNOMED Code(s): 40991210 ICD Code: F03.90 - UNSPECIFIED DEMENTIA WITHOUT BEHAVIORAL DISTURBANCE Status: Chronic Current Visit: No Qualifiers: Dementia type: Alzheimer's disease (6) Palliative care status SNOMED Code(s): 888275009 ICD Code: Z51.5 - ENCOUNTER FOR PALLIATIVE CARE Status: Acute Current Visit: No (7) Recurrent falls SNOMED Code(s): 184121998 ICD Code: R29.6 - REPEATED FALLS Status: Acute Current Visit: No Problem Details: Precautions discussed for Memory Unit at [facility] (8) Afib SNOMED Code(s): 92972346 ICD Code: I48.91 - UNSPECIFIED ATRIAL FIBRILLATION Status: Acute Current Visit: Yes Qualifiers: Atrial fibrillation type: paroxysmal Qualified Code(s): I48.0 - Paroxysmal atrial fibrillation Problem List Initiated/Reviewed/Updated: Yes Orders Last 24hrs: Active Orders 24 hr Category Date Time Status Patient Status [ADT] Routine ADT 04/11/19 17:00 Active EKG Documentation Completion [RC] ASDIRECTED Care 04/11/19 14:24 Active Height and Weight [RC] DAILY Care 04/11/19 16:59 Active Intake and Output [RC] QSHIFT Care 04/11/19 17:03 Active Oxygen Therapy [RC] PRN Care 04/11/19 17:00 Active Up With Assistance [RC] ASDIRECTED Care 04/11/19 16:59 Active Urinary Catheter Assessment [RC] QSHIFT Care 04/11/19 16:59 Active VTE/DVT Education [RC] Per Unit Routine Care 04/11/19 17:00 Active Vital Signs [RC] Q4H Care 04/11/19 17:00 Active Heart Healthy Diet [DIET] Diet 04/11/19 Dinner Ordered Chest 1V Frontal [CR] Stat Exams 04/11/19 14:22 Taken Head wo Cont [CT] Stat Exams 04/11/19 14:22 Taken BASIC METABOLIC PANEL,BMP [CHEM] AM Lab 04/12/19 05:11 Ordered CBC WITH AUTO DIFF [HEME] AM Lab 04/12/19 05:11 Ordered CULTURE URINE [RM] Stat Lab 04/11/19 16:00 Received ALPRAZolam [Xanax] Med 04/11/19 17:37 Ordered 0.25 mg PO DAILY PRN Acetaminophen [Tylenol] Med 04/11/19 17:37 Ordered 650 mg PO Q4H PRN Acetaminophen/HYDROcodone [[place] 325-5 MG] Med 04/11/19 17:37 Ordered 1 tab PO DAILY PRN Ciprofloxacin in D5W [Cipro in D5W 400 MG/200 ML] 400 Med 04/11/19 17:06 Active mg Premix Bag 1 bag IV ONETIME Cyanocobalamin (Vitamin B12) [Vitamin B12] Med 04/12/19 09:00 Ordered 500 mcg PO DAILY Diclofenac Sodium [Voltaren 1% Gel] Med 04/11/19 21:00 Ordered 2 gm TOP QID Donepezil [Aricept] Med 04/11/19 21:00 Ordered 10 mg PO BEDTIME FLUoxetine [PROzac] Med 04/12/19 09:00 Ordered 20 mg PO DAILY Glycerin/Propylene Glycol [Artificial Tears Drops] Med 04/11/19 21:00 Ordered 1 drop EYEBOTH BID Glycerin/Propylene Glycol [Artificial Tears Drops] Med 04/11/19 17:37 Ordered 1 drop EYEBOTH QID PRN Levothyroxine Med 04/12/19 07:00 Ordered 125 mcg PO DAILY@0700 Loperamide [Imodium AD] Med 04/11/19 17:37 Ordered 2 mg PO ASDIRECTED PRN Multivitamins/Minerals/Lutein [Certavite SR with Lutein Med 04/12/19 09:00 Ordered ] 1 tab PO DAILY Sodium Chloride 0.9% [Normal Saline] 1,000 ml Med 04/11/19 17:15 Active IV ASDIRECTED Sodium Chloride 0.9% [Normal Saline] 1,000 ml Med 04/11/19 17:45 Ordered IV ASDIRECTED Sodium Chloride 0.9% [Saline Flush] Med 04/11/19 14:22 Active 10 ml FLUSH ASDIRECTED PRN busPIRone [Buspar] Med 04/11/19 21:00 Ordered 10 mg PO BID cefTRIAXone [Rocephin] 1 gm Med 04/11/19 17:45 Ordered Sodium Chloride 0.9% [Normal Saline] 50 ml IV Q24H traZODone Med 04/11/19 21:00 Ordered 100 mg PO BEDTIME Saline Lock Insert [OM.PC] Routine Oth 04/11/19 14:22 Ordered Resuscitation Status Routine Resus Stat 04/11/19 16:59 Ordered EKG 12 Lead [EK] Routine Ther 04/11/19 14:22 Ordered Medication Orders Acetaminophen (Tylenol) 650 mg PO Q4H PRN PRN Reason: Pain/Fever Hydrocodone Bitart/Acetaminophen ([place] 325-5 Mg) 1 tab PO DAILY PRN PRN Reason: SEVERE PAIN Alprazolam (Xanax) 0.25 mg PO DAILY PRN PRN Reason: Anxiety Buspirone HCl (Buspar) 10 mg PO BID [facility] Cyanocobalamin (Vitamin B12) 500 mcg PO DAILY [facility] Diclofenac Sodium (Voltaren 1% Gel) 2 gm TOP QID [facility] Donepezil HCl (Aricept) 10 mg PO BEDTIME [facility] Fluoxetine HCl (Prozac) 20 mg PO DAILY [facility] Sodium Chloride (Normal Saline) 1,000 mls @ 100 mls/hr IV ASDIRECTED [facility] Last Admin: 04/11/19 17:30 Dose: 999 mls/hr Ciprofloxacin/Dextrose 400 mg/ (Premix) 200 mls @ 200 mls/hr IV ONETIME ONE Stop: 04/11/19 18:05 Ceftriaxone Sodium 1 gm/ (Sodium Chloride) 50 mls @ 200 mls/hr IV Q24H [facility] Sodium Chloride (Normal Saline) 1,000 mls @ 150 mls/hr IV ASDIRECTED [facility] Levothyroxine Sodium (Levothyroxine) 125 mcg PO DAILY@0700 [facility] Non-Formulary Medication (Glycerin/Propylene Glycol [Artificial Tears Drops]) 1 drop EYEBOTH BID [facility] Non-Formulary Medication (Glycerin/Propylene Glycol [Artificial Tears Drops]) 1 drop EYEBOTH QID PRN PRN Reason: Dry Eyes Non-Formulary Medication (Loperamide [Imodium Ad]) 2 mg PO ASDIRECTED PRN PRN Reason: Diarrhea Non-Formulary Medication (Multivitamins/Minerals/Lutein [Certavite Sr With Lutein]) 1 tab PO DAILY [facility] Sodium Chloride (Saline Flush) 10 ml FLUSH ASDIRECTED PRN PRN Reason: Keep Vein Open Trazodone HCl (Trazodone) 100 mg PO BEDTIME [facility] Assessment/Plan Comment:: I will admit her for IV fluid resuscitation. Ordered a bolus of 1 L of normal saline, then continue at 150 mL an hour. I will stop the diuretics, antihypertensives and repeat a basic panel in the morning. I've also treated the unit tract infection with Rocephin 1 g IV every 24 hours. - Mortality Measure Prognosis:: Good
[2019-04-11] MEDS ORDERED: Loperamide 2 MG Cap PO PRN (17:55)
[2019-04-11] MEDS ORDERED: cefTRIAXone 1 GM in Sodium Chloride 0.9% 50 ML IV SCH (18:00)
[2019-04-11] MEDS ORDERED: Diclofenac Sodium 1% Gel 100 GM Tube TOP SCH (21:00)
[2019-04-11] MEDS ORDERED: traZODone 100 MG Tab PO SCH (21:00)
[2019-04-11] MEDS ORDERED: busPIRone 10 MG Tab PO SCH (21:00)
--- NOTE | 2019-04-11 21:26 | PCM.SN ---
- Free Text/Narrative Note: ANESTHESIA SERVICE Date: 04/11/2019 Time: 2044 to 2101 I was called by the house physician for venous access for antibiotics after multiple attempts by the nursing staff. Upon arrival to the patient room, I found her extremely forgetful, disorientated , and multiple large areas of ecchymosis on her left face. I attempted an IV on her right distal forearm that ruptured passing the the catheter. I found a vein in her left ACF and prepped the area with alcohol swabs X 2. I did spray the planned insertion site with a cold skin deadening spray and waited for 3 minutes for its effect. I inserted and advanced a 22 Ga. X 1 In. [employer] obtaining a peripheral venous access site. I flushed the IV with 10 ml's of normal saline without problems. An Opsite Dressing was placed. She tolerated this procedure well. DESHAWN Boateng CRNA
[2019-04-11] MEDS ORDERED: traZODone 50 MG Tab PO SCH (21:30)
[2019-04-11] MEDS ORDERED: busPIRone 5 MG Tab PO SCH (21:30)
[2019-04-11] MEDS: Donepezil 10 MG Tab PO SCH (22:19)
[2019-04-12] MEDS: Sodium Chloride 0.9% 1,000 ML IV SCH ×3 (04:41→19:37)
[2019-04-12] MEDS: Levothyroxine 125 MCG Tab PO SCH ×2 (05:03→07:43)
[2019-04-12] MEDS ORDERED: Polyvinyl Alcohol 1.4% Ophth Soln 15 ML Bottle EYEBOTH PRN (07:45)
[2019-04-12] MEDS ORDERED: Carboxymethylcellulose Sodium 0.5% Ophth Soln 15 ML Bottle EYEBOTH PRN (09:00)
--- NOTE | 2019-04-12 09:12 | PCM.PN ---
- General Info Date of Service: 04/12/19 Subjective Update: Reason slight improvement on the clinical status,. She has dementia. No fever diarrhea vomiting reported.Urine Output still very low Functional Status: Reports: Pain Controlled, Tolerating Diet - Review of Systems General: Reports: No Symptoms HEENT: Reports: No Symptoms Pulmonary: Reports: No Symptoms Cardiovascular: Reports: No Symptoms Gastrointestinal: Reports: No Symptoms Genitourinary: Reports: No Symptoms - Patient Data Vitals - Most Recent: Last Vital Signs Temp 99.1 F 04/12/19 04:00 Pulse 150 H 04/12/19 04:00 Resp 18 04/12/19 00:00 BP 138/48 L 04/12/19 04:00 Pulse Ox 100 04/12/19 00:00 Weight - Most Recent: 63.548 kg I&O - Last 24 Hours: Intake & Output 04/11/19 04/12/19 04/12/19 22:59 06:59 14:59 Intake Total 2200 1200 Output Total 150 150 Balance 2050 1050 Lab Results Last 24 Hours: Laboratory Results - last 24 hr 04/11/19 04/11/19 04/11/19 Range/Units 14:22 15:00 15:00 WBC 7.4 (4.5-12.0) X10-3/uL RBC 3.64 (3.23-5.20) x10(6)uL Hgb 11.7 (11.5-15.5) g/dL Hct 35.0 (30.0-51.3) % MCV 96.2 H (80-96) fL MCH 32.1 (27.7-33.6) pg MCHC 33.4 (32.2-35.4) g/dL RDW 18.7 H (11.5-15.5) % Plt Count 42 L (125-369) X10(3)uL MPV 11.1 H (7.4-10.4) fL Neut % (Auto) (46-82) % Lymph % (Auto) (13-37) % Adams % (Auto) (4-12) % Eos % (Auto) (1.0-5.0) % Baso % (Auto) (0-2) % Neut # (Auto) (1.6-8.3) # Lymph # (Auto) (0.6-5.0) # Adams # (Auto) (0.0-1.3) # Eos # (Auto) (0.0-0.8) # Baso # (Auto) (0.0-0.2) # Add Manual Diff Yes Neutrophils % (Manual) 84 H (46-82) % Lymphocytes % (Manual) 11 L (13-37) % Monocytes % (Manual) 5 (4-12) % Nucleated RBCs 1 H (0-0) /100WBC Anisocytosis Many H Sodium 139 (135-145) mmol/L Potassium 5.4 H D (3.5-5.3) mmol/L Chloride 105 (100-110) mmol/L Carbon Dioxide 21 (21-32) mmol/L BUN 75 H D (7-18) mg/dL Creatinine 5.0 H* (0.55-1.02) mg/dL Est Cr Clr Drug Dosing TNP Estimated GFR (MDRD) 8 L (>60) BUN/Creatinine Ratio 15.0 (9-20) Glucose 243 H D (80-116) mg/dL Calcium 8.7 (8.6-10.2) mg/dL Total Bilirubin 0.9 (0.1-1.3) mg/dL AST 25 D (5-25) IU/L ALT 34 D (12-36) U/L Alkaline Phosphatase 108 (56-112) IU/L Troponin I (<0.017-0.056) ng/mL NT-Pro-B Natriuret Pep (<=450) pg/mL Total Protein 6.8 (6.0-8.0) g/dL Albumin 3.2 (3.2-4.6) g/dL Globulin 3.6 g/dL Albumin/Globulin Ratio 0.9 Urine Color Yellow (YELLOW) Urine Appearance Clear (CLEAR) Urine pH 5.0 (5.0-6.5) Ur Specific [place] 1.015 (1.010-1.025) Urine Protein 30 H (NEGATIVE) mg/dL Urine Glucose (UA) Normal (NORMAL) mg/dL Urine Ketones 15 H (NEGATIVE) mg/dL Urine Occult Blood Negative (NEGATIVE) Urine Nitrite Negative (NEGATIVE) Urine Bilirubin Negative (NEGATIVE) Urine Urobilinogen Normal (NEGATIVE) mg/dL Ur Leukocyte Esterase Moderate H (NEGATIVE) Urine RBC 0-5 (0-5) Urine WBC 5-10 H (0-5) Ur Squamous Epith Cells Few H (NS,R,O) Urine Bacteria Many H (NS) Hyaline Casts Few H (NS) 04/11/19 04/12/19 04/12/19 Range/Units 15:00 06:20 06:20 WBC 7.6 (4.5-12.0) X10-3/uL RBC 3.45 (3.23-5.20) x10(6)uL Hgb 11.0 L (11.5-15.5) g/dL Hct 32.8 (30.0-51.3) % MCV 95.1 (80-96) fL MCH 31.8 (27.7-33.6) pg MCHC 33.4 (32.2-35.4) g/dL RDW 18.6 H (11.5-15.5) % Plt Count 31 L* (125-369) X10(3)uL MPV 12.2 H (7.4-10.4) fL Neut % (Auto) 80.9 (46-82) % Lymph % (Auto) 10.2 L (13-37) % Adams % (Auto) 6.9 (4-12) % Eos % (Auto) 1 (1.0-5.0) % Baso % (Auto) 2 (0-2) % Neut # (Auto) 6.2 (1.6-8.3) # Lymph # (Auto) 0.8 (0.6-5.0) # Adams # (Auto) 0.5 (0.0-1.3) # Eos # (Auto) 0.0 (0.0-0.8) # Baso # (Auto) 0.1 (0.0-0.2) # Add Manual Diff Neutrophils % (Manual) (46-82) % Lymphocytes % (Manual) (13-37) % Monocytes % (Manual) (4-12) % Nucleated RBCs (0-0) /100WBC Anisocytosis Sodium 138 (135-145) mmol/L Potassium 5.0 (3.5-5.3) mmol/L Chloride 111 H D (100-110) mmol/L Carbon Dioxide 16 L (21-32) mmol/L BUN 69 H (7-18) mg/dL Creatinine 4.2 H* (0.55-1.02) mg/dL Est Cr Clr Drug Dosing 8.46 Estimated GFR (MDRD) 10 L (>60) BUN/Creatinine Ratio 16.4 (9-20) Glucose 103 D (80-116) mg/dL Calcium 8.2 L (8.6-10.2) mg/dL Total Bilirubin (0.1-1.3) mg/dL AST (5-25) IU/L ALT (12-36) U/L Alkaline Phosphatase (56-112) IU/L Troponin I < 0.017 L (<0.017-0.056) ng/mL NT-Pro-B Natriuret Pep 88638 H* (<=450) pg/mL Total Protein (6.0-8.0) g/dL Albumin (3.2-4.6) g/dL Globulin g/dL Albumin/Globulin Ratio Urine Color (YELLOW) Urine Appearance (CLEAR) Urine pH (5.0-6.5) Ur Specific [place] (1.010-1.025) Urine Protein (NEGATIVE) mg/dL Urine Glucose (UA) (NORMAL) mg/dL Urine Ketones (NEGATIVE) mg/dL Urine Occult Blood (NEGATIVE) Urine Nitrite (NEGATIVE) Urine Bilirubin (NEGATIVE) Urine Urobilinogen (NEGATIVE) mg/dL Ur Leukocyte Esterase (NEGATIVE) Urine RBC (0-5) Urine WBC (0-5) Ur Squamous Epith Cells (NS,R,O) Urine Bacteria (NS) Hyaline Casts (NS) Med Orders - Current: Current Medications Acetaminophen (Tylenol) 650 mg PO Q4H PRN PRN Reason: Pain/Fever Hydrocodone Bitart/Acetaminophen ([place] 325-5 Mg) 1 tab PO DAILY PRN PRN Reason: SEVERE PAIN Alprazolam (Xanax) 0.25 mg PO DAILY PRN PRN Reason: Anxiety Artificial Tears (Refresh Tears 0.5%) 0 ml EYEBOTH BID VANESSA Artificial Tears (Refresh Tears 0.5%) 0 ml EYEBOTH QID PRN PRN Reason: DRY EYES Buspirone HCl (Buspar) 10 mg PO BID [facility] Ceftriaxone Sodium (Rocephin) 1 gm IVPUSH Q24H [facility] Cyanocobalamin (Vitamin B12) 500 mcg PO DAILY [facility] Donepezil HCl (Aricept) 10 mg PO BEDTIME [facility]AN[facility] Last Admin: 04/11/19 22:19 Dose: 10 mg Fluoxetine HCl (Prozac) 20 mg PO DAILY [facility] Sodium Chloride (Normal Saline) 1,000 mls @ 150 mls/hr IV ASDIRECTED [facility] Last Admin: 04/12/19 04:41 Dose: 150 mls/hr Sodium Chloride (Normal Saline) 1,000 mls @ 999 mls/hr IV ASDIRECTED [facility] Levothyroxine Sodium (Levothyroxine) 125 mcg PO DAILY@0700 [facility] Last Admin: 04/12/19 07:43 Dose: Not Given Loperamide HCl (Imodium) 2 mg PO ASDIRECTED PRN PRN Reason: Diarrhea Multivitamins (Thera) 1 each PO DAILY [facility] Sodium Chloride (Saline Flush) 10 ml FLUSH ASDIRECTED PRN PRN Reason: Keep Vein Open Trazodone HCl (Trazodone) 100 mg PO BEDTIME [facility] Discontinued Medications Artificial Tears (Liquitears 1.4% Ophth Soln) 0 ml EYEBOTH QID PRN PRN Reason: DRY EYES Buspirone HCl (Buspar) 10 mg PO BID [facility] Last Admin: 04/12/19 00:07 Dose: Not Given Buspirone HCl (Buspar) 10 mg PO BID [facility] Last Admin: 04/11/19 22:18 Dose: 10 mg Sodium Chloride (Normal Saline) 500 mls @ 500 mls/hr IV .BOLUS ONE Stop: 04/11/19 15:24 Last Admin: 04/11/19 15:21 Dose: 500 mls/hr Sodium Chloride (Normal Saline) 1,000 mls @ 100 mls/hr IV ASDIRECTED [facility] Last Admin: 04/11/19 17:30 Dose: 999 mls/hr Ciprofloxacin/Dextrose 400 mg/ (Premix) 200 mls @ 200 mls/hr IV ONETIME ONE Stop: 04/11/19 18:05 Last Admin: 04/11/19 22:10 Dose: 200 mls/hr Ceftriaxone Sodium 1 gm/ (Sodium Chloride) 50 mls @ 200 mls/hr IV Q24H [facility] Last Admin: 04/11/19 20:10 Dose: 200 mls/hr Trazodone HCl (Trazodone) 100 mg PO BEDTIME [facility] Last Admin: 04/12/19 00:07 Dose: Not Given Trazodone HCl (Trazodone) 100 mg PO BEDTIME [facility]ES[facility] Last Admin: 04/11/19 22:19 Dose: 100 mg - Exam General: Alert HEENT: Pupils Equal Neck: Supple Lungs: Clear to Auscultation Cardiovascular: Regular Rate Neurological: No New Focal Deficit Psy/Mental Status: Alert - Problem List & Annotations (1) ABBY (acute kidney injury) SNOMED Code(s): 81909927, 49026056 Code(s): N17.9 - ACUTE KIDNEY FAILURE, UNSPECIFIED Status: Acute Current Visit: Yes (2) H/O CHF SNOMED Code(s): 331106813 Code(s): Z86.79 - PERSONAL HISTORY OF OTHER DISEASES OF THE CIRCULATORY SYSTEM Status: Chronic Current Visit: Yes (3) HTN (hypertension) SNOMED Code(s): 99093952 Code(s): I10 - ESSENTIAL (PRIMARY) HYPERTENSION Status: Acute Current Visit: Yes Qualifiers: Hypertension type: essential hypertension Qualified Code(s): I10 - Essential (primary) hypertension (4) UTI (urinary tract infection) SNOMED Code(s): 64493391 Code(s): N39.0 - URINARY TRACT INFECTION, SITE NOT SPECIFIED Status: Acute Current Visit: Yes Qualifiers: Urinary tract infection type: acute cystitis (5) Dementia SNOMED Code(s): 17490578 Code(s): F03.90 - UNSPECIFIED DEMENTIA WITHOUT BEHAVIORAL DISTURBANCE Status: Chronic Current Visit: No Qualifiers: Dementia type: Alzheimer's disease (6) Palliative care status SNOMED Code(s): 560290319 Code(s): Z51.5 - ENCOUNTER FOR PALLIATIVE CARE Status: Acute Current Visit: No (7) Recurrent falls SNOMED Code(s): 645563328 Code(s): R29.6 - REPEATED FALLS Status: Acute Current Visit: No Annotation/Comment:: Precautions discussed for Memory Unit at [facility] (8) Afib SNOMED Code(s): 29100506 Code(s): I48.91 - UNSPECIFIED ATRIAL FIBRILLATION Status: Acute Current Visit: Yes Qualifiers: Atrial fibrillation type: paroxysmal Qualified Code(s): I48.0 - Paroxysmal atrial fibrillation - Problem List Review Problem List Initiated/Reviewed/Updated: Yes - My Orders Last 24 Hours: My Active Orders 04/11/19 17:37 ALPRAZolam [Xanax] 0.25 mg PO DAILY PRN Acetaminophen [Tylenol] 650 mg PO Q4H PRN Acetaminophen/HYDROcodone [[place] 325-5 MG] 1 tab PO DAILY PRN 04/11/19 17:45 Sodium Chloride 0.9% [Normal Saline] 1,000 ml IV ASDIRECTED 04/11/19 17:55 Loperamide [Imodium] 2 mg PO ASDIRECTED PRN 04/11/19 21:00 Donepezil [Aricept] 10 mg PO BEDTIME 04/12/19 07:00 Levothyroxine 125 mcg PO DAILY@0700 04/12/19 09:00 Carboxymethylcellulose Sodium [Refresh Tears 0.5%] 0 ml EYEBOTH BID Carboxymethylcellulose Sodium [Refresh Tears 0.5%] 0 ml EYEBOTH QID PRN Cyanocobalamin (Vitamin B12) [Vitamin B12] 500 mcg PO DAILY FLUoxetine [PROzac] 20 mg PO DAILY Multivitamins,Therapeutic [Thera] 1 each PO DAILY busPIRone [Buspar] 10 mg PO BID 04/12/19 09:15 Sodium Chloride 0.9% [Normal Saline] 1,000 ml IV ASDIRECTED 04/12/19 20:00 cefTRIAXone [Rocephin] 1 gm IVPUSH Q24H 04/12/19 21:00 traZODone 100 mg PO BEDTIME - Plan Plan:: I will give another liter of normal saline. And then continue 150 hour. A creatinine is improved to 4.2 this morning, will repeat again in the morning.
--- NOTE | 2019-04-12 09:13 | CT ---
INDICATION: Fall, head injury. CT HEAD WITHOUT CONTRAST: Spiral 3.75 mm axial sections were obtained through the brain without contrast, 04/11/19, and repeated due to motion of the patient , who was unable to fully cooperate with the examination. Examination was compared with 11/06/17. Total exam DLP = 1,244.99 mGy-cm. No definite acute intracranial abnormality was identified - no bleeding site or hematoma was seen. There do appear to be progressive white matter changes, compatible with mild to moderate microvascular disease, as well as evolving subcortical infarcts in the tail of the caudate nucleus on the left and in the periventricular white matter on the left with generalized slight increase in decreased density in the white matter, compatible with microvascular disease - additional etiology cannot be excluded in cases of leukoencephalopathy. No shift of midline structures was identified. Ventricles are prominent, compatible with central atrophy, as previously. Prominent internal carotid artery calcifications and vertebral artery calcifications are noted. Additional calcification is minimal in the middle cerebral on the right and prominent in the middle cerebral on the left. The orbits appear to be grossly intact. Degenerative changes are noted at the atlantoodontoid joint. Paranasal sinuses and mastoid air cells appear to be fairly well-aerated - there is a small retention cyst in the right maxillary antrum. No definite cranial abnormality was seen. IMPRESSION: 1. No definite acute intracranial abnormality. 2. There is some progression of white matter changes and a few probably evolved lacunar infarcts and/or subcortical infarcts on the left. 3. Cerebrovascular disease with calcification in the arteries. 4. Central atrophy - stable. 5. Resolution of previous scalp hematoma seen in the right frontal area on the previous study. Report was called to Dr. Davis on 04/11/19 at 1501 hours. [facility]
[2019-04-12] MEDS ORDERED: Sodium Chloride 0.9% 1,000 ML IV SCH (09:15)
[2019-04-12] MEDS: Cyanocobalamin (Vitamin B12) 500 MCG Tab PO SCH (09:19)
[2019-04-12] MEDS: FLUoxetine 20 MG Cap PO SCH (09:19)
[2019-04-12] MEDS: busPIRone 10 MG Tab PO SCH ×2 (09:19→20:41)
[2019-04-12] MEDS: Multivitamins,Therapeutic Tab PO SCH (09:19)
--- NOTE | 2019-04-12 09:20 | CR ---
INDICATION: Altered level of consciousness. CHEST: AP upright view of the chest was obtained, 04/11/19, and compared with 02/13/14. Poor inspiration emphasizes the markings and the heart size, which may be somewhat enlarged compared with the previous study. The aorta is tortuous with calcification in the arch. Minimal infiltrate could be present in the lung bases, especially on the right, with heavy markings there. Full inspiration PA and lateral views of the chest may be helpful for further evaluation of the heart and possible infiltrates at the lung bases. Total shoulder arthroplasty is noted on the left with osteoporosis in general and degenerative changes at the right glenohumeral joint. IMPRESSION: 1. Probable ASHD. 2. Cannot exclude infiltrates at the lung bases. Examination with full inspiration PA and lateral views may be helpful for further evaluation, when clinically possible. [facility]
[2019-04-12] MEDS: Carboxymethylcellulose Sodium 0.5% Ophth Soln 15 ML Bottle EYEBOTH SCH ×2 (09:33→20:43)
[2019-04-12] MEDS ORDERED: cefTRIAXone 1 GM Vial IVPUSH SCH (20:00)
[2019-04-12] MEDS: Donepezil 10 MG Tab PO SCH (20:41)
[2019-04-12] MEDS ORDERED: traZODone 100 MG Tab PO SCH (21:00)
[2019-04-13] MEDS: Sodium Chloride 0.9% 1,000 ML IV SCH ×3 (02:30→16:00)
[2019-04-13] MEDS: Levothyroxine 125 MCG Tab PO SCH ×3 (05:39→06:21)
--- NOTE | 2019-04-13 08:26 | PCM.PN ---
- General Info Date of Service: 04/13/19 Subjective Update: Reason slight improvement on the clinical status,. She has dementia. No fever diarrhea vomiting reported.Urine Output still very low. Functional Status: Reports: Pain Controlled - Review of Systems Pulmonary: Reports: No Symptoms Cardiovascular: Reports: No Symptoms Gastrointestinal: Reports: No Symptoms Genitourinary: Reports: No Symptoms - Patient Data Vitals - Most Recent: Last Vital Signs Temp 97.4 F 04/13/19 03:58 Pulse 56 L 04/13/19 03:58 Resp 18 04/13/19 03:58 BP 114/62 04/13/19 03:58 Pulse Ox 93 L 04/13/19 03:58 Weight - Most Recent: 66.27 kg I&O - Last 24 Hours: Intake & Output 04/12/19 04/13/19 04/13/19 22:59 06:59 14:59 Intake Total 856 1509 Output Total 150 175 Balance 706 1334 Lab Results Last 24 Hours: Laboratory Results - last 24 hr 04/13/19 04/13/19 Range/Units 08:00 08:00 WBC 6.9 (4.5-12.0) X10-3/uL RBC 3.56 (3.23-5.20) x10(6)uL Hgb 10.9 L (11.5-15.5) g/dL Hct 34.7 (30.0-51.3) % MCV 97.5 H (80-96) fL MCH 30.8 (27.7-33.6) pg MCHC 31.5 L (32.2-35.4) g/dL RDW 20.3 H (11.5-15.5) % Plt Count 18 L* (125-369) X10(3)uL MPV 10.9 H (7.4-10.4) fL Neut % (Auto) 83.6 H (46-82) % Lymph % (Auto) 8.0 L (13-37) % [place] % (Auto) 7.8 (4-12) % Eos % (Auto) 0 L (1.0-5.0) % Baso % (Auto) 0 (0-2) % Neut # (Auto) 5.8 (1.6-8.3) # Lymph # (Auto) 0.6 (0.6-5.0) # Mower # (Auto) 0.5 (0.0-1.3) # Eos # (Auto) 0.0 (0.0-0.8) # Baso # (Auto) 0.0 (0.0-0.2) # Sodium 143 (135-145) mmol/L Potassium 4.6 (3.5-5.3) mmol/L Chloride 114 H (100-110) mmol/L Carbon Dioxide 14 L (21-32) mmol/L BUN 60 H (7-18) mg/dL Creatinine 3.4 H* (0.55-1.02) mg/dL Est Cr Clr Drug Dosing 10.45 mL/min Estimated GFR (MDRD) 13 L (>60) BUN/Creatinine Ratio 17.6 (9-20) Glucose 106 (80-116) mg/dL Calcium 8.4 L (8.6-10.2) mg/dL Denis Results Last 24 Hours: Microbiology 04/11/19 16:00 Urine Culture - Preliminary Urine, Catheterized Gram Negative Rods Med Orders - Current: Current Medications Acetaminophen (Tylenol) 650 mg PO Q4H PRN PRN Reason: Pain/Fever Hydrocodone Bitart/Acetaminophen ([place] 325-5 Mg) 1 tab PO DAILY PRN PRN Reason: SEVERE PAIN Alprazolam (Xanax) 0.25 mg PO DAILY PRN PRN Reason: Anxiety Artificial Tears (Refresh Tears 0.5%) 0 ml EYEBOTH BID [facility] Last Admin: 04/12/19 20:43 Dose: 1 drop Artificial Tears (Refresh Tears 0.5%) 0 ml EYEBOTH QID PRN PRN Reason: DRY EYES Buspirone HCl (Buspar) 10 mg PO BID [facility] Last Admin: 04/12/19 20:41 Dose: 10 mg Ceftriaxone Sodium (Rocephin) 1 gm IVPUSH Q24H [facility] Last Admin: 04/12/19 19:48 Dose: 1 gm Cyanocobalamin (Vitamin B12) 500 mcg PO DAILY [facility] Last Admin: 04/12/19 09:19 Dose: 500 mcg Donepezil HCl (Aricept) 10 mg PO BEDTIME [facility] Last Admin: 04/12/19 20:41 Dose: 10 mg Fluoxetine HCl (Prozac) 20 mg PO DAILY [facility] Last Admin: 04/12/19 09:19 Dose: 20 mg Sodium Chloride (Normal Saline) 1,000 mls @ 150 mls/hr IV ASDIRECTED [facility] Last Admin: 04/13/19 02:30 Dose: 150 mls/hr Sodium Chloride (Normal Saline) 1,000 mls @ 999 mls/hr IV ASDIRECTED [facility] Last Admin: 04/12/19 11:43 Dose: 999 mls/hr Levothyroxine Sodium (Levothyroxine) 125 mcg PO DAILY@0700 [facility] Last Admin: 04/13/19 06:21 Dose: Not Given Loperamide HCl (Imodium) 2 mg PO ASDIRECTED PRN PRN Reason: Diarrhea Multivitamins (Thera) 1 each PO DAILY [facility] Last Admin: 04/12/19 09:19 Dose: 1 each Sodium Chloride (Saline Flush) 10 ml FLUSH ASDIRECTED PRN PRN Reason: Keep Vein Open Trazodone HCl (Trazodone) 100 mg PO BEDTIME [facility] Last Admin: 04/12/19 20:41 Dose: 100 mg Discontinued Medications Artificial Tears (Liquitears 1.4% Ophth Soln) 0 ml EYEBOTH QID PRN PRN Reason: DRY EYES Buspirone HCl (Buspar) 10 mg PO BID [facility] Last Admin: 04/12/19 00:07 Dose: Not Given Buspirone HCl (Buspar) 10 mg PO BID [facility] Last Admin: 04/11/19 22:18 Dose: 10 mg Sodium Chloride (Normal Saline) 500 mls @ 500 mls/hr IV .BOLUS ONE Stop: 04/11/19 15:24 Last Admin: 04/11/19 15:21 Dose: 500 mls/hr Sodium Chloride (Normal Saline) 1,000 mls @ 100 mls/hr IV ASDIRECTED [facility] Last Admin: 04/11/19 17:30 Dose: 999 mls/hr Ciprofloxacin/Dextrose 400 mg/ (Premix) 200 mls @ 200 mls/hr IV ONETIME ONE Stop: 04/11/19 18:05 Last Admin: 04/11/19 22:10 Dose: 200 mls/hr Ceftriaxone Sodium 1 gm/ (Sodium Chloride) 50 mls @ 200 mls/hr IV Q24H [facility] Last Admin: 04/11/19 20:10 Dose: 200 mls/hr Trazodone HCl (Trazodone) 100 mg PO BEDTIME [facility] Last Admin: 04/12/19 00:07 Dose: Not Given Trazodone HCl (Trazodone) 100 mg PO BEDTIME [facility] Last Admin: 04/11/19 22:19 Dose: 100 mg - Exam General: Alert Neck: Supple Lungs: Clear to Auscultation Cardiovascular: Regular Rate GI/Abdominal Exam: Normal Bowel Sounds Back Exam: Normal Inspection Extremities: Normal Inspection Skin: Warm - Problem List & Annotations (1) ABBY (acute kidney injury) SNOMED Code(s): 10343980, 82660008 Code(s): N17.9 - ACUTE KIDNEY FAILURE, UNSPECIFIED Status: Acute Current Visit: Yes (2) H/O CHF SNOMED Code(s): 201533010 Code(s): Z86.79 - PERSONAL HISTORY OF OTHER DISEASES OF THE CIRCULATORY SYSTEM Status: Chronic Current Visit: Yes (3) HTN (hypertension) SNOMED Code(s): 38653629 Code(s): I10 - ESSENTIAL (PRIMARY) HYPERTENSION Status: Acute Current Visit: Yes Qualifiers: Hypertension type: essential hypertension Qualified Code(s): I10 - Essential (primary) hypertension (4) UTI (urinary tract infection) SNOMED Code(s): 48686076 Code(s): N39.0 - URINARY TRACT INFECTION, SITE NOT SPECIFIED Status: Acute Current Visit: Yes Qualifiers: Urinary tract infection type: acute cystitis (5) Dementia SNOMED Code(s): 48417496 Code(s): F03.90 - UNSPECIFIED DEMENTIA WITHOUT BEHAVIORAL DISTURBANCE Status: Chronic Current Visit: No Qualifiers: Dementia type: Alzheimer's disease (6) Palliative care status SNOMED Code(s): 918692519 Code(s): Z51.5 - ENCOUNTER FOR PALLIATIVE CARE Status: Acute Current Visit: No (7) Recurrent falls SNOMED Code(s): 871721823 Code(s): R29.6 - REPEATED FALLS Status: Acute Current Visit: No Annotation/Comment:: Precautions discussed for Memory Unit at [facility] (8) Afib SNOMED Code(s): 93063383 Code(s): I48.91 - UNSPECIFIED ATRIAL FIBRILLATION Status: Acute Current Visit: Yes Qualifiers: Atrial fibrillation type: paroxysmal Qualified Code(s): I48.0 - Paroxysmal atrial fibrillation (9) Thrombocytopenia SNOMED Code(s): 049193944 Code(s): D69.6 - THROMBOCYTOPENIA, UNSPECIFIED Status: Acute Current Visit: Yes - Problem List Review Problem List Initiated/Reviewed/Updated: Yes - My Orders Last 24 Hours: My Active Orders 04/12/19 09:00 Carboxymethylcellulose Sodium [Refresh Tears 0.5%] 0 ml EYEBOTH BID Carboxymethylcellulose Sodium [Refresh Tears 0.5%] 0 ml EYEBOTH QID PRN Cyanocobalamin (Vitamin B12) [Vitamin B12] 500 mcg PO DAILY FLUoxetine [PROzac] 20 mg PO DAILY Multivitamins,Therapeutic [Thera] 1 each PO DAILY busPIRone [Buspar] 10 mg PO BID 04/12/19 09:15 Sodium Chloride 0.9% [Normal Saline] 1,000 ml IV ASDIRECTED 04/12/19 20:00 cefTRIAXone [Rocephin] 1 gm IVPUSH Q24H 04/12/19 21:00 traZODone 100 mg PO BEDTIME 04/14/19 05:11 CBC WITH AUTO DIFF [HEME] AM COMPREHENSIVE METABOLIC PN,CMP [CHEM] AM - Plan Plan:: Continue IVF. Repat Labs in AM. Observe platelet count.
[2019-04-13] MEDS: Carboxymethylcellulose Sodium 0.5% Ophth Soln 15 ML Bottle EYEBOTH SCH ×2 (08:31→21:28)
[2019-04-13] MEDS: busPIRone 10 MG Tab PO SCH ×2 (08:31→21:28)
[2019-04-13] MEDS: FLUoxetine 20 MG Cap PO SCH (08:31)
[2019-04-13] MEDS: Cyanocobalamin (Vitamin B12) 500 MCG Tab PO SCH (08:31)
[2019-04-13] MEDS: Multivitamins,Therapeutic Tab PO SCH (08:31)
[2019-04-13] MEDS ORDERED: Furosemide 40 MG/4 ML VIAL IVPUSH ONE (16:53)
[2019-04-13] MEDS ORDERED: Melatonin 3 MG Tab PO SCH (21:00)
[2019-04-13] MEDS: Donepezil 10 MG Tab PO SCH (21:28)
[2019-04-13] MEDS ORDERED: Nitrofurantoin Monohydrate/Macrocrystalline 100 MG Cap PO SCH (21:30)
[2019-04-14] MEDS: Sodium Chloride 0.9% 1,000 ML IV SCH (00:38)
[2019-04-14] MEDS: Levothyroxine 125 MCG Tab PO SCH (06:38)
[2019-04-14] MEDS ORDERED: Ciprofloxacin 250 MG Tab PO SCH (09:00)
[2019-04-14] MEDS: FLUoxetine 20 MG Cap PO SCH (09:15)
[2019-04-14] MEDS: busPIRone 10 MG Tab PO SCH (09:15)
[2019-04-14] MEDS: Carboxymethylcellulose Sodium 0.5% Ophth Soln 15 ML Bottle EYEBOTH SCH (09:15)
[2019-04-14] MEDS: Multivitamins,Therapeutic Tab PO SCH (09:16)
[2019-04-14] MEDS: Cyanocobalamin (Vitamin B12) 500 MCG Tab PO SCH (09:16)
[2019-04-14] MEDS ORDERED: Furosemide 20 MG/2 ML VIAL IVPUSH ONE (10:15)
--- NOTE | 2019-04-14 10:16 | PCM.PN ---
- General Info Date of Service: 04/14/19 Subjective Update: Marian had wheezing yesterday probably from from fluid overload.I did give her 1 dose of Lasix,and also reduced the IV fluids rate. Output 275 over night, and wheezing improved some. She still very confused and weak. Functional Status: Reports: Pain Controlled, Tolerating Diet. Denies: Ambulating - Review of Systems Pulmonary: Reports: Shortness of Breath, Wheezing. Denies: Pleuritic Chest Pain Cardiovascular: Reports: No Symptoms Gastrointestinal: Reports: No Symptoms Genitourinary: Reports: No Symptoms Musculoskeletal: Reports: No Symptoms - Patient Data Vitals - Most Recent: Last Vital Signs Temp 97.6 F 04/14/19 04:00 Pulse 56 L 04/14/19 04:00 Resp 18 04/14/19 04:00 BP 124/56 L 04/14/19 04:00 Pulse Ox 97 04/14/19 04:00 Weight - Most Recent: 68.447 kg I&O - Last 24 Hours: Intake & Output 04/13/19 04/14/19 04/14/19 22:59 06:59 14:59 Intake Total 1101 615 Output Total 300 225 Balance 801 390 Lab Results Last 24 Hours: Laboratory Results - last 24 hr 04/14/19 04/14/19 Range/Units 06:15 06:15 WBC 6.8 (4.5-12.0) X10-3/uL Corrected WBC 6.4 (4.5-12.0) X10(3) RBC 3.78 (3.23-5.20) x10(6)uL Hgb 11.7 (11.5-15.5) g/dL Hct 36.8 (30.0-51.3) % MCV 97.4 H (80-96) fL MCH 30.9 (27.7-33.6) pg MCHC 31.7 L (32.2-35.4) g/dL RDW 19.9 H (11.5-15.5) % Plt Count 36 L* (125-369) X10(3)uL MPV 11.8 H (7.4-10.4) fL Add Manual Diff Yes Neutrophils % (Manual) 85 H (46-82) % Band Neutrophils % 1 (0-6) % Lymphocytes % (Manual) 9 L (13-37) % Monocytes % (Manual) 2 L (4-12) % Eosinophils % (Manual) 1 (0-5) % Basophils % (Manual) 1 (0-2) % Metamyelocytes % 1 H (0-0) % Nucleated RBCs 6 H (0-0) /100WBC Poikilocytosis Many H Anisocytosis Many H Sodium 144 (135-145) mmol/L Potassium 4.3 (3.5-5.3) mmol/L Chloride 116 H* (100-110) mmol/L Carbon Dioxide 14 L (21-32) mmol/L BUN 60 H (7-18) mg/dL Creatinine 3.3 H* (0.55-1.02) mg/dL Est Cr Clr Drug Dosing 10.76 mL/min Estimated GFR (MDRD) 13 L (>60) BUN/Creatinine Ratio 18.2 (9-20) Glucose 107 (80-116) mg/dL Calcium 8.5 L (8.6-10.2) mg/dL Total Bilirubin 0.9 (0.1-1.3) mg/dL AST 55 H D (5-25) IU/L ALT 39 H D (12-36) U/L Alkaline Phosphatase 90 (56-112) IU/L Total Protein 5.9 L (6.0-8.0) g/dL Albumin 2.6 L (3.2-4.6) g/dL Globulin 3.3 g/dL Albumin/Globulin Ratio 0.8 Denis Results Last 24 Hours: Microbiology 04/11/19 16:00 Urine Culture - Preliminary Urine, Catheterized Citrobacter Freundii Med Orders - Current: Current Medications Acetaminophen (Tylenol) 650 mg PO Q4H PRN PRN Reason: Pain/Fever Hydrocodone Bitart/Acetaminophen ([place] 325-5 Mg) 1 tab PO DAILY PRN PRN Reason: SEVERE PAIN Alprazolam (Xanax) 0.25 mg PO DAILY PRN PRN Reason: Anxiety Artificial Tears (Refresh Tears 0.5%) 0 ml EYEBOTH BID [facility] Last Admin: 04/14/19 09:15 Dose: 1 drop Artificial Tears (Refresh Tears 0.5%) 0 ml EYEBOTH QID PRN PRN Reason: DRY EYES Buspirone HCl (Buspar) 10 mg PO BID [facility] Last Admin: 04/14/19 09:15 Dose: 10 mg Ciprofloxacin (Ciprofloxacin Hcl) 250 mg PO BID [facility] Stop: 04/18/19 21:01 Last Admin: 04/14/19 09:20 Dose: 250 mg Cyanocobalamin (Vitamin B12) 500 mcg PO DAILY [facility] Last Admin: 04/14/19 09:16 Dose: 500 mcg Donepezil HCl (Aricept) 10 mg PO BEDTIME [facility] Last Admin: 04/13/19 21:28 Dose: 10 mg Fluoxetine HCl (Prozac) 20 mg PO DAILY [facility] Last Admin: 04/14/19 09:15 Dose: 20 mg Furosemide (Lasix) 10 mg IVPUSH NOW ONE Stop: 04/14/19 10:12 Sodium Chloride (Normal Saline) 1,000 mls @ 75 mls/hr IV ASDIRECTED [facility] Last Admin: 04/14/19 00:38 Dose: 75 mls/hr Sodium Chloride (Normal Saline) 1,000 mls @ 999 mls/hr IV ASDIRECTED [facility] Last Admin: 04/12/19 11:43 Dose: 999 mls/hr Levothyroxine Sodium (Levothyroxine) 125 mcg PO DAILY@0700 [facility] Last Admin: 04/14/19 06:38 Dose: 125 mcg Loperamide HCl (Imodium) 2 mg PO ASDIRECTED PRN PRN Reason: Diarrhea Melatonin (Melatonin) 9 mg PO BEDTIME [facility] Last Admin: 04/13/19 21:28 Dose: 9 mg Multivitamins (Thera) 1 each PO DAILY [facility] Last Admin: 04/14/19 09:16 Dose: 1 each Sodium Chloride (Saline Flush) 10 ml FLUSH ASDIRECTED PRN PRN Reason: Keep Vein Open Discontinued Medications Artificial Tears (Liquitears 1.4% Ophth Soln) 0 ml EYEBOTH QID PRN PRN Reason: DRY EYES Buspirone HCl (Buspar) 10 mg PO BID [facility] Last Admin: 04/12/19 00:07 Dose: Not Given Buspirone HCl (Buspar) 10 mg PO BID [facility] Last Admin: 04/11/19 22:18 Dose: 10 mg Ceftriaxone Sodium (Rocephin) 1 gm IVPUSH Q24H [facility] Last Admin: 04/12/19 19:48 Dose: 1 gm Furosemide (Lasix) 40 mg IVPUSH NOW ONE Stop: 04/13/19 16:54 Last Admin: 04/13/19 17:14 Dose: 40 mg Sodium Chloride (Normal Saline) 500 mls @ 500 mls/hr IV .BOLUS ONE Stop: 04/11/19 15:24 Last Admin: 04/11/19 15:21 Dose: 500 mls/hr Sodium Chloride (Normal Saline) 1,000 mls @ 100 mls/hr IV ASDIRECTED [facility] Last Admin: 04/11/19 17:30 Dose: 999 mls/hr Ciprofloxacin/Dextrose 400 mg/ (Premix) 200 mls @ 200 mls/hr IV ONETIME ONE Stop: 04/11/19 18:05 Last Admin: 04/11/19 22:10 Dose: 200 mls/hr Ceftriaxone Sodium 1 gm/ (Sodium Chloride) 50 mls @ 200 mls/hr IV Q24H [facility] Last Admin: 04/11/19 20:10 Dose: 200 mls/hr Nitrofurantoin Macrocrystals (Macrobid) 100 mg PO BID [facility] Stop: 04/20/19 21:31 Last Admin: 04/13/19 21:57 Dose: 100 mg Trazodone HCl (Trazodone) 100 mg PO BEDTIME [facility] Last Admin: 04/12/19 00:07 Dose: Not Given Trazodone HCl (Trazodone) 100 mg PO BEDTIME [facility] Last Admin: 04/11/19 22:19 Dose: 100 mg Trazodone HCl (Trazodone) 100 mg PO BEDTIME [facility] Last Admin: 04/12/19 20:41 Dose: 100 mg - Exam General: Alert Neck: Supple Lungs: Crackles, Rales Cardiovascular: Regular Rate Skin: Warm Psy/Mental Status: No: Hallucinations - Problem List & Annotations (1) ABBY (acute kidney injury) SNOMED Code(s): 96026008, 34183366 Code(s): N17.9 - ACUTE KIDNEY FAILURE, UNSPECIFIED Status: Acute Current Visit: Yes (2) H/O CHF SNOMED Code(s): 063619107 Code(s): Z86.79 - PERSONAL HISTORY OF OTHER DISEASES OF THE CIRCULATORY SYSTEM Status: Chronic Current Visit: Yes (3) HTN (hypertension) SNOMED Code(s): 06666703 Code(s): I10 - ESSENTIAL (PRIMARY) HYPERTENSION Status: Acute Current Visit: Yes Qualifiers: Hypertension type: essential hypertension Qualified Code(s): I10 - Essential (primary) hypertension (4) UTI (urinary tract infection) SNOMED Code(s): 49771302 Code(s): N39.0 - URINARY TRACT INFECTION, SITE NOT SPECIFIED Status: Acute Current Visit: Yes Qualifiers: Urinary tract infection type: acute cystitis (5) Dementia SNOMED Code(s): 28552332 Code(s): F03.90 - UNSPECIFIED DEMENTIA WITHOUT BEHAVIORAL DISTURBANCE Status: Chronic Current Visit: No Qualifiers: Dementia type: Alzheimer's disease (6) Palliative care status SNOMED Code(s): 415985731 Code(s): Z51.5 - ENCOUNTER FOR PALLIATIVE CARE Status: Acute Current Visit: No (7) Recurrent falls SNOMED Code(s): 486135020 Code(s): R29.6 - REPEATED FALLS Status: Acute Current Visit: No Annotation/Comment:: Precautions discussed for Memory Unit at [facility] (8) Afib SNOMED Code(s): 77089693 Code(s): I48.91 - UNSPECIFIED ATRIAL FIBRILLATION Status: Acute Current Visit: Yes Qualifiers: Atrial fibrillation type: paroxysmal Qualified Code(s): I48.0 - Paroxysmal atrial fibrillation (9) Thrombocytopenia SNOMED Code(s): 414046344 Code(s): D69.6 - THROMBOCYTOPENIA, UNSPECIFIED Status: Acute Current Visit: Yes - Problem List Review Problem List Initiated/Reviewed/Updated: Yes - My Orders Last 24 Hours: My Active Orders 04/13/19 16:53 Bladder Scan [RC] ASDIRECTED 04/13/19 21:00 Melatonin 9 mg PO BEDTIME 04/14/19 09:00 Ciprofloxacin [Ciprofloxacin HCl] 250 mg PO BID 04/14/19 10:11 Furosemide [Lasix] 10 mg IVPUSH NOW ONE 04/15/19 05:11 BASIC METABOLIC PANEL,BMP [CHEM] AM PRO B-TYPE NATRIUR PEPT,BNPPRO [CHEM] DAILY - Plan Plan:: Total cytopenia improved. Creatinine down to 3.3. Slight improved unit. I will ask physical and occupational therapy to see her for strengthening. I discontinued IV fluids today. Also switch to oral antibiotic to ciprofloxacin, because of the organism Citrobacter fecundii.
--- NOTE | 2019-04-14 12:02 | CR ---
INDICATION: Wheezing. CHEST: An AP upright portable view of the chest, 04/14/19, was compared with and 01/20/16. The heart is enlarged. The aorta is tortuous with calcification in the arch. There is increased density at the right lung base, compatible with some patchy infiltration and raising question of minimal pneumonia in that area. No grossly consolidating pneumonia or significant sized pleural effusion could be identified. This is the only change compared with the previous examination. IMPRESSION: There is an appearance suggesting minimal infiltration at the right lung base, which could represent pneumonia in that area. This should be correlated clinically. MTDD
[2019-04-14 16:49] VITALS: BP 122/74; PULSE 56
--- NOTE | 2019-04-14 18:15 | PCM.SN ---
- Free Text/Narrative Note: called to bedside at 19:50, pt sat up with assistance of 2 hospital staff, became limp and sank back in bed, no tonic clonic activity BP 81/55, pt placed in reverse Trendelenberg and BP 102/62, however pt developed gasping respirations and quietly with time of 18:05 no discomfort had improved in 3d since admission with BUN/creat 60/3.3 today, down from 75/ 3.3 3d ago, had been on IVF until this AM, clinical still appeared dry with dec' d turgor ext x 4 with 0.5 sec tenting x 4 of note is BUN/creat 26/1.3 from 3m ago and 18/1.0 from 1y ago pt is DNR, has dementia had eaten poorly here in ED as well as at care home CxR 3d ago showed a question of an infiltrate at R base, trop neg 3d ago,BNP 12, 819 from 3d ago has known htn, hf, afib AST/ALT 55/39 from 3d ago, previously wnl, c/w passive liver congestion despite dehydration WBC 6.8 with 85% segs ASSESS 1. 2. advanced dementia 3. heart failure 4. renal failure 5. poor oral intake and failure to thrive PLAN family at bedside earlier today, currently in [place], notified by nursing to return to hospital, will visit with them when they arrive cause of appears to be advanced dementia with HF and RF contributing factors
--- NOTE | 2019-04-15 14:52 | DISCH ---
DISCHARGE DATE: 04/14/2019 DATE OF : 04/14/2019. REASON FOR ADMISSION: 1. Acute renal failure. 2. Dementia. 3. Atrial fibrillation. 4. Urinary tract infection. 5. Hypertension. 6. History of congestive heart failure. 7. Recurrent falls. REASON FOR : 1. Seizure activity. 2. Acute renal failure. 3. Congestive heart failure. 4. Failure to thrive. BRIEF HISTORY AND HOSPITAL COURSE: Marian Stewart is an 83-year-old female, well known to me from the [facility], admitted for generalized weakness and found to be in acute renal failure with creatinine up to 5. She also had bacteriuria and was initially treated with Rocephin, later changed to ciprofloxacin. She got IV fluids on admission. Her creatinine improved some up to 3.2, however, weakness persisted and oral intake remained scant. On the day of , she sat up to sit on the bed and had a tonic-clonic seizure and stopped breathing shortly afterwards. May the Almighty God rest her soul in eternal peace. I spent less than 35 minutes in the dictation of this discharge summary. /[id number] AUGUSTINA/BONIFACIO
== END 2019-04-14 20:35 | disposition expired | DRG 683 ==
LOC: FB.ED 13:32 → FB.MS 17:05
PROVIDERS: ADMIT Emergency Medicine; ATTEND Family Medicine
DX: N39.0 Urinary tract infection, site not specified (principal); N17.9 Acute kidney failure, unspecified; R53.1 Weakness; R41.82 Altered mental status, unspecified; N30.00 Acute cystitis without hematuria; J90 Pleural effusion, not elsewhere classified; I11.0 Hypertensive heart disease with heart failure; Z51.5 Encounter for palliative care; Z66 Do not resuscitate; E86.0 Dehydration; E78.00 Pure hypercholesterolemia, unspecified; G30.9 Alzheimer's disease, unspecified; M19.90 Unspecified osteoarthritis, unspecified site; F02.80 Dementia in other diseases classified elsewhere, unspecified severity, without behavioral disturbance, psychotic disturbance, mood disturbance, and anxiety; F41.9 Anxiety disorder, unspecified; F32.9 Major depressive disorder, single episode, unspecified; R56.9 Unspecified convulsions; D69.6 Thrombocytopenia, unspecified; B96.89 Other specified bacterial agents as the cause of diseases classified elsewhere; I48.0 Paroxysmal atrial fibrillation; R62.7 Adult failure to thrive; H91.93 Unspecified hearing loss, bilateral; H54.7 Unspecified visual loss; I50.9 Heart failure, unspecified; Z68.24 Body mass index [BMI] 24.0-24.9, adult; Z91.81 History of falling; Z88.6 Allergy status to analgesic agent; Z88.0 Allergy status to penicillin; Z88.2 Allergy status to sulfonamides; Z90.49 Acquired absence of other specified parts of digestive tract; Z79.899 Other long term (current) drug therapy; Z90.710 Acquired absence of both cervix and uterus; Z86.14 Personal history of Methicillin resistant Staphylococcus aureus infection; Z96.659 Presence of unspecified artificial knee joint; Z79.890 Hormone replacement therapy; Z79.82 Long term (current) use of aspirin
CPT/HCPCS: 36415; 51702; 51798; 70450; 71045; 80048; 80053; 81001; 83880; 84484; 85025; 87086; 87088; 87186; 93005; 93010; 96360; 97161-GP; 97165-GO; 99284; 99285-25; A9270-GY; J0696; J0744; J1940; J7030; J7040; J7050